=== PATIENT | female | born 1960 | race Caucasian/White ===

== ENCOUNTER 2018-07-28 11:19 | Inpatient (IN) | payer BC, OTHER ==
[2018-07-28] MEDS ORDERED: HYDROmorphone HCL 1 MG/ML DISP.SYRIN IV ONE (11:32)
--- NOTE | 2018-07-28 12:01 | ERNOTE ---
Upper Extremity HPI - Narrative Date of Service: 07/28/18 - General Extremities Pain Location: shoulder: bilateral Time Seen by Provider: 07/28/18 11:22 Source: patient Exam Limitations: no limitations - Immun/Allergies/Home Medications Immunizations: IMMUNIZATION HX Immunizations Up to Date Yes History of Influenza Vaccine Yes Hx Pneumococcal Vaccination Yes Allergies/Adverse Reactions: Allergies Allergy/AdvReac Type Severity Reaction Status Date / Time No Known Allergies Allergy Unverified 07/28/18 11:46 Home Medications: HOME MEDICATIONS Advair 250-50 Diskus 07/28/18 [Last Taken Unknown] Effexor 07/28/18 [Last Taken Unknown] Humulin R SC TID 07/28/18 [Last Taken Unknown] Januvia 07/28/18 [Last Taken Unknown] Metformin HCl 07/28/18 [Last Taken Unknown] Metformin HCl 07/28/18 [Last Taken Unknown] Omeprazole 07/28/18 [Last Taken Unknown] Spiriva 07/28/18 [Last Taken Unknown] Topamax 07/28/18 [Last Taken Unknown] Zetia 07/28/18 [Last Taken Unknown] - History of Present Illness Narrative: Patient is sent to the ED in transfer from outlying facility. She was at work pushing a cart and the cart gave way. She fell forward and sustained a fracture/dislocation of the right shoulder and fracture of the left shoulder as well. She did not have LOC. She did bite her tongue but no other injuries. No facial pain. no neck pain. Denies other injuries. Bilateral shoulder pain is severe. Worse with any kind of movement. No acute N/T/W. Sent here iin transfer for ortho services. She denies acute CP or SOB, no abdominal pain. Occurred: just prior to arrival Location of Incident: work Method of Injury: Reports: fell Reason for Fall: Reports: other - see HPI Loss of Consciousness: Reports: no loss of consciousness Modifying Factors - (Improves): Reports: rest Modifying Factors - (Worsens): Reports: movement Associated Symptoms: Denies: tingling, weakness, numbness distally Other Injuries: Reports: other - tongue Prior Treament: Reports: recently seen Review of Systems - Review of Systems Constitutional: Absent: fever EYE: Present: no symptoms reported ENT: Absent: sore throat Respiratory: Absent: shortness of breath Cardiology: Absent: chest pain Gastrointestinal/Abdominal: Absent: abdominal pain Genitourinary: Absent: dysuria Musculoskeletal: Present: See HPI Skin: Present: no symptoms reported Neurological: Absent: weakness, numbness, tingling All Other Systems: All systems neg except as marked Medical History (Last Reviewed 07/28/18 @ 11:58 by Todd Moreno MD) Asthma Diabetes mellitus type 2 in obese GERD (gastroesophageal reflux disease) HTN (hypertension) Migraines Obesity Sleep apnea Surgical History: Surgical History (Last Reviewed 07/28/18 @ 11:58 by Todd Moreno MD) Hx laparoscopic cholecystectomy Hx of heart artery stent Hx of heart bypass surgery Social History: Preferred Language Amharic Do you have any hindu or No cultural preference? Smoking Status Never smoker Alcohol Use sober Drug Use none No Social History Section defined Physical Exam - Physical Exam General Appearance: Present: alert, no apparent distress Head Exam: Present: normal inspection, no evidence of injury Eye Exam: Normal inspection: bilateral, PERRL: bilateral Ears, Nose, Throat: Present: other - very small tongue laceration tongue. No other suggesation of facial bone fracture Neck: Present: normal inspection. Absent: tender posterior midline Respiratory: Present: no respiratory distress, normal breath sounds, no accessory muscle use, lungs clear Cardiovascular/Chest: Present: regular rate, rhythm, normal peripheral pulses Gastrointestinal/Abdominal: Present: normal bowel sounds, nontender, soft Back Exam: Present: no vertebral tenderness Extremity Exam: Present: other - No LE tenderness. Bilateral shoulder tenderness Neurological Exam: Present: alert, other - pain limits exam but no clear acute focal motor or sensory deficits Skin Exam: Present: normal color, warm/dry ED Progress - Results and Orders Patient's Lab Results:: I have reviewed the patient's lab results. - Vital Signs Patient's Vital Signs:: I have reviewed the patient's vital signs. Vital Signs: Vital Signs 07/28/18 11:20 Temperature 36.7 C Pulse Rate 90 Respiratory Rate 14 Blood Pressure 142/83 H O2 Sat by Pulse Oximetry 95 - EKG EKG: NSR EKG read: Interp. by me EKG Comments: NSR rate 87. Non-specific ST/T wave changes, no STEMI - CT/Ultrasound CT/Ultrasound Narrative: I reviewed all x-rays from outlying facility. - Progress/Reassessment Chief Complaint: Shoulder Injury/Pain Progress Note-Subjective: 07/28/18 11:54 I discussed the case with Dr Adame and Dr Zazueta. Dr Zazueta will see the patient in the ED for re-op and admission. Dr Adame will also see the patient in the ED. Patient understands. Departure Clinical Impression: Fall, Fracture dislocation of right shoulder joint, Fracture of humeral head, left, closed - Departure Disposition: Still a patient Condition: Fair
[2018-07-28 12:19] LABS: Hematocrit 43.4 % (37.0-47.0); Hemoglobin 14.1 gm/dL (12.5-16.0); Mean Cell Volume 83.8 fl (78-100); Mean Corpuscular Hemoglobin 27.2 pg (27-31); Mean Corpuscular Hgb Conc 32.5 g/dl (32-36); Mean Platelet Volume 11.9 fl (8-12.5); Neutrophil # 14.3 K/mm3 (1.3-6.0); Neutrophil % 86.4 % (42-75.0); Platelet Count 207 K/mm3 (150-450); Red Blood Count 5.18 M/mm3 (4.2-5.4); Red Cell Distribution Width 13.3 % (11.5-14.0); White Blood Count 16.6 K/mm3 (4.0-10.5)
[2018-07-28 12:34] LABS: Albumin * 3.4 gm/dl (3.4-5.0); Anion Gap 14.3 mmol/L (6.8-13.8); BUN/Creatinine Ratio 20.5 (9.0-21.6); Bilirubin, Total 0.5 mg/dL (0.0-1.1); Ca. Corrected For Albumin 8.8 mg/dL (8.4-10.2); Calcium * 8.6 mg/dL (7.9-10.9); Carbon Dioxide 24.7 mmol/L (24-32.6); Total Protein 6.8 gm/dL (6.2-8.2)
[2018-07-28 13:03] LABS: Urine Bilirubin Negative (NEGATIVE); Urine Ketone 5 mg/dL (NEGATIVE); Urine Nitrite Negative (NEGATIVE); Urine Protein Negative (NEGATIVE); Urine Specific Gravity 1.015 SP.GR. (1.005-1.010); Urine Urobilinogen Normal (NORMAL)
[2018-07-28] MEDS: HYDROmorphone HCL 1 MG/ML DISP.SYRIN IV PRN ×3 (13:04→19:23)
[2018-07-28] MEDS ORDERED: TIOTROPIUM BROMIDE 5 CAP INHALER IH PRN (13:15)
[2018-07-28] MEDS ORDERED: ENOXAPARIN SODIUM 40 MG/0.4 ML SYRG SC SCH (13:15)
[2018-07-28 13:16] LABS: Urine Appearance Slightly Cloudy (CLEAR); Urine Bacteria 1+; Urine Blood 5 /ul (NEGATIVE); Urine Color Pale Yellow; Urine Hyaline Cast TRACE /LPF; Urine RBC None Seen /hpf (0-5); Urine WBC None Seen /hpf (0-5)
--- NOTE | 2018-07-28 13:33 | HP ---
Chief Complaint - Chief Complaint Date of Service: 07/28/18 Time of Service: 12:35 Chief Complaint: Bilateral shoulder fractures, on of the R. humerus and one of the L shoulder girdle due to a fall. Also has a tongue bite perforation. History of Present Illness: Fell pushing a cart with a load. the front wheels stopped at the elevator track and the load went forward. she then fell onto the cart and broke both of her shoulders. Medical History (Last Reviewed 07/28/18 @ 11:58 by Todd Moreno MD) Asthma Diabetes mellitus type 2 in obese GERD (gastroesophageal reflux disease) HTN (hypertension) Migraines Obesity Sleep apnea Surgical History: Surgical History (Last Reviewed 07/28/18 @ 11:58 by Todd Moreno MD) Hx laparoscopic cholecystectomy Hx of heart artery stent Hx of heart bypass surgery Family History: Family History (Last Updated 07/28/18 @ 11:56 by Steffen Perez RN) Grandmother Diabetes Sister No problems noted. Mother Cancer Sister Heart disease Social History: Preferred Language Monegasque Do you have any moravian or No cultural preference? Smoking Status Never smoker Alcohol Use sober Drug Use none No Social History Section defined Review Of Systems (GEN) - Review of Systems EENTM: Present: Other - Tongue bite perforation from the fall Respiratory: Present: No Symptoms Reported Cardiac: Present: No Symptoms Reported, Other - Has a hx of hypertension Abdominal: Present: No Symptoms Reported Genitourinary: Present: No Symptoms Reported Musculoskeletal: Present: Joint Pain - both shoulders due to traumatic fractures. Neurological: Present: No Symptoms Reported. Absent: Emotional Problems Skin: Present: No Symptoms Reported Endocrine: Present: Other - History of IDDM and is uncontrolled. BS in ER 496 Immunizations: IMMUNIZATION HX Immunizations Up to Date Yes History of Influenza Vaccine Yes Hx Pneumococcal Vaccination Yes Allergies/Adverse Reactions: Allergies Allergy/AdvReac Type Severity Reaction Status Date / Time No Known Allergies Allergy Unverified 07/28/18 11:46 Home Medications: HOME MEDICATIONS Advair 250-50 Diskus 1 puff IH DAILY 07/28/18 [Last Taken Unknown] Effexor 75 mg PO TID 07/28/18 [Last Taken Unknown] Humulin R 110 units SC TID 07/28/18 [Last Taken Unknown] Januvia 100 mg PO DAILY 07/28/18 [Last Taken Unknown] Metformin HCl 500 ng PO DAILY 07/28/18 [Last Taken Unknown] Omeprazole 20 mg PO DAILY 07/28/18 [Last Taken Unknown] Spiriva 2 puff IH PRN PRN 07/28/18 [Last Taken Unknown] Topamax 50 mg PO BID 07/28/18 [Last Taken Unknown] Zetia 07/28/18 [Last Taken Unknown] Exam - Exam Vital Signs: Vital Signs - Last Taken Temp 36.7 C 07/28/18 11:20 Pulse 99 07/28/18 13:00 Resp 10 L 07/28/18 13:00 BP 152/77 H 07/28/18 13:00 Pulse Ox 93 07/28/18 13:00 Constitutional: Present: Alert, Oriented x3, Cooperative, Well developed, Well nourished, Moderate distress, Obese, Looks Older than stated age ENT Exam: Present: normal ENT inspection, hearing grossly normal, pharynx normal, TMs normal, other - Tongue bite perforation Eye Exam: bilateral eye: normal inspection, PERRL, EOMI Neck: Present: non-tender, full range of motion, supple Back Exam: Present: normal inspection, no CVA tenderness, no vertebral tenderness Respiratory: Present: chest non-tender, lungs clear, normal breath sounds, no respiratory distress, no accessory muscle use Cardiovascular/Chest: Present: normal peripheral pulses, regular rate, rhythm, no chest tenderness, no edema, no gallop, no JVD, no murmur, no rub Peripheral Pulses: carotid (R): 2+, carotid (L): 2+ Abdomen: Present: Normal bowel sounds, soft, nontender, nondistended, no rebound tenderness, no hepatospenomegaly, no masses /Rectal: Present: Exam deferred Extremity: Present: other - Unable to move arms and shoulders Lymphatic: Present: no adenopathy Neurologic: Present: athlete marketing agent II-XII nml as tested, no motor/sensory deficits, alert, normal mood/affect, oriented x 3, abnormal athlete marketing agent II-XII Appearance: Present: appropriate appearance, appropriate insight, neat, no memory impairment Eye contact: Present: cooperative, good eye contact, normal speech, avoids eye contact, refused to answer Thoughts: Present: normal thought pattern, no apparent hallucination Diagnostic Studies: Abnormal Lab Results 11/07/18 11/07/18 11/07/18 Range/Units 12:10 12:10 12:29 WBC 16.6 H (4.0-10.5) K/mm3 Immature Gran % (Auto) 1.00 H (0.001-0.429) % Immature Gran # (Auto) 0.17 H (0.000-0.0310) K/mm3 Neutrophils % 86.4 H (42-75.0) % Lymphocytes % 7.3 L (20-51) % Neutrophils # 14.3 H (1.3-6.0) K/mm3 Lymphocytes # 1.21 L (1.5-3.5) k/mm3 Anion Gap 14.3 H (6.8-13.8) mmol/L Random Glucose 460 H (70-110) mg/dL AST 52 H (0-48) U/L Alkaline Phosphatase 183 H (50-170) U/L Urine Glucose (UA) >=1000 H (NEGATIVE) mg/dL Urine Blood 5 H (NEGATIVE) /ul Urine Bacteria 1+ H (NONE) Laboratory Results WBC 16.6 K/mm3 (4.0-10.5) H 07/28/18 12:10 RBC 5.18 M/mm3 (4.2-5.4) 07/28/18 12:10 Hgb 14.1 gm/dL (12.5-16.0) 07/28/18 12:10 Hct 43.4 % (37.0-47.0) 07/28/18 12:10 MCV 83.8 fl (78-100) 07/28/18 12:10 MCH 27.2 pg (27-31) 07/28/18 12:10 MCHC 32.5 g/dl (32-36) 07/28/18 12:10 RDW 13.3 % (11.5-14.0) 07/28/18 12:10 Plt Count 207 K/mm3 (150-450) 07/28/18 12:10 MPV 11.9 fl (8-12.5) 07/28/18 12:10 Immature Gran % (Auto) 1.00 % (0.001-0.429) H 07/28/18 12:10 Immature Gran # (Auto) 0.17 K/mm3 (0.000-0.0310) H 07/28/18 12:10 Neutrophils % 86.4 % (42-75.0) H 07/28/18 12:10 Lymphocytes % 7.3 % (20-51) L 07/28/18 12:10 Monocytes % 4.6 % (0.0-9) 07/28/18 12:10 Eosinophils % 0.2 % (0.0-3.0) 07/28/18 12:10 Basophils % 0.5 % (0.0-1.0) 07/28/18 12:10 Nucleated RBC % 0.0 k/mm3 (0-1) 07/28/18 12:10 Neutrophils # 14.3 K/mm3 (1.3-6.0) H 07/28/18 12:10 Lymphocytes # 1.21 k/mm3 (1.5-3.5) L 07/28/18 12:10 Monocytes # 0.8 k/mm3 (0.0-1.0) 07/28/18 12:10 Eosinophils # 0.0 k/mm3 (0.0-0.7) 07/28/18 12:10 Absolute Basophils 0.1 k/mm3 (0.0-0.1) 07/28/18 12:10 Sodium 136 mmol/L (132-142) 07/28/18 12:10 Plasma Sodium 142 mmol/L (130-142) 07/28/18 12:10 Potassium 4.0 mmol/L (3.4-4.6) 07/28/18 12:10 Chloride 101 mmol/L (97-106) 07/28/18 12:10 Carbon Dioxide 24.7 mmol/L (24-32.6) 07/28/18 12:10 Anion Gap 14.3 mmol/L (6.8-13.8) H 07/28/18 12:10 BUN 17 mg/dL (3-23) 07/28/18 12:10 Creatinine 0.83 mg/dL (0.4-1.4) 07/28/18 12:10 Est GFR (Non-Af Amer) 75 mL/min (60-130) 07/28/18 12:10 BUN/Creatinine Ratio 20.5 (9.0-21.6) 07/28/18 12:10 Random Glucose 460 mg/dL (70-110) H 07/28/18 12:10 Calcium 8.6 mg/dL (7.9-10.9) 07/28/18 12:10 Calcium Adj for Albumin 8.8 mg/dL (8.4-10.2) 07/28/18 12:10 Total Bilirubin 0.5 mg/dL (0.0-1.1) 07/28/18 12:10 AST 52 U/L (0-48) H 07/28/18 12:10 ALT 49 U/L (19-67) 07/28/18 12:10 Alkaline Phosphatase 183 U/L (50-170) H 07/28/18 12:10 Total Protein 6.8 gm/dL (6.2-8.2) 07/28/18 12:10 Albumin 3.4 gm/dl (3.4-5.0) 07/28/18 12:10 Urine Color Pale yellow 07/28/18 12:29 Urine Appearance Slightly cloudy (CLEAR) 07/28/18 12:29 Urine pH 6.0 pH (5.0-7.0) 07/28/18 12:29 Ur Specific [place] 1.015 SP.GR. (1.005-1.010) 07/28/18 12:29 Urine Protein Negative mg/dL (NEGATIVE) 07/28/18 12:29 Urine Glucose (UA) >=1000 mg/dL (NEGATIVE) H 07/28/18 12:29 Urine Ketones 5 mg/dL (NEGATIVE) 07/28/18 12:29 Urine Blood 5 /ul (NEGATIVE) H 07/28/18 12:29 Urine Nitrate Negative (NEGATIVE) 07/28/18 12:29 Urine Bilirubin Negative mg/dl (NEGATIVE) 07/28/18 12:29 Urine Urobilinogen Normal EU/dl (NORMAL) 07/28/18 12:29 Ur Leukocyte Esterase Negative /ul (NEGATIVE) 07/28/18 12:29 Urine RBC None seen /hpf (0-5) 07/28/18 12:29 Urine WBC None seen /hpf (0-5) 07/28/18 12:29 Ur Epithelial Cells 0-5 /hpf (0-5) 07/28/18 12:29 Urine Bacteria 1+ (NONE) H 07/28/18 12:29 Hyaline Casts Trace /LPF (NONE) 07/28/18 12:29 Urine Culture Comments No culture indicated 07/28/18 12:29 Assessment/Plan - Narrative Narrative: 1. Dr. Adame will manage surgically 2. I will manage medically 3. Readdress her diabetes management. - Assessment/Plan (1) Fracture dislocation of right shoulder joint Problem: Acute Qualifiers: Encounter type: initial encounter (2) Fracture of humeral head, left, closed Problem: Acute Qualifiers: Encounter type: initial encounter Qualified Code(s): S42.292A - Other displaced fracture of upper end of left humerus, initial encounter for closed fracture (3) Type II diabetes mellitus Problem: Chronic Qualifiers: Diabetes mellitus intermodal customer service insulin use: with [facility] use Diabetes mellitus complication status: without complication Qualified Code(s): E11.9 - Type 2 diabetes mellitus without complications; Z79.4 - [facility] (current) use of insulin (4) Hypertension Problem: Chronic Qualifiers: Hypertension type: essential hypertension Qualified Code(s): I10 - Essenti al (primary) hypertension (5) Fall Problem: Acute (6) Tongue biting Problem: Acute
[2018-07-28] MEDS ORDERED: INSULIN LISPRO 100 UNITS/ML VIAL SC STA (13:34)
--- NOTE | 2018-07-28 13:46 | CONS ---
- Reason for consultation (1) Proximal humerus fracture Date of Service: 07/28/18 (2) Fracture dislocation of right shoulder joint Date of Service: 07/28/18 HPI - General Date of Service: 07/28/18 Narrative: Mrs. Torrez is a 58-year-old female who was at work pushing a cart onto an elevator when the the cart abruptly stopped and she fell resulting in an injury to bilateral shoulders. She was seen outside emergency department and had x- rays obtained which showed a right proximal humerus fracture dislocation and a comminuted left proximal humerus fracture. She denies any other areas of pain or injury. She is in our emergency department for further evaluation and is in mild discomfort. Source: patient - History of Present Illness Timing/Duration: 4-6 hours Severity: moderate Modifying Factors - (Worsens): Reports: movement Modifying Factors - (Improves): Reports: immobilization Associated Symptoms: denies symptoms Allergies/Adverse Reactions: Allergies No Known Allergies Allergy (Unverified 07/28/18 11:46) Home Medications: Home Medications Medication Instructions Recorded Last Taken Advair 250-50 Diskus 1 puff IH DAILY 07/28/18 Unknown Effexor 75 mg PO TID 07/28/18 Unknown Humulin R 110 units SC TID 07/28/18 Unknown Januvia 100 mg PO DAILY 07/28/18 Unknown Metformin HCl 500 ng PO DAILY 07/28/18 Unknown Omeprazole 20 mg PO DAILY 07/28/18 Unknown Spiriva 2 puff IH PRN PRN 07/28/18 Unknown Topamax 50 mg PO BID 07/28/18 Unknown Zetia 07/28/18 Unknown Procedures Other partial ostectomy, scapula, clavicle, and thorax [ribs and sternum] (03/06/03) Other repair of shoulder (03/06/03) Medications - Medications Current Medications: Current Medications Hydromorphone HCl (Dilaudid) 1 mg IV Q2H PRN PRN Reason: Pain Stop: 08/27/18 12:51 Last Admin: 07/28/18 13:04 Dose: 1 mg Review of Systems - Review of Systems Generalized/Overall Review: Present: No Symptoms Reported Physical Examination - Exam Narrative: Right upper extremity: Well-healed arthroscopy portals, squared off shoulder consistent with dislocation anteriorly, palpable radial pulse, sensation is intact light touch, she is able to move and flex and extend her hand and wrist. Sensations intact to the radial nerve as well as the remaining arm. She has pain with any shoulder range of motion. Left upper extremity: No lacerations, abrasions, or ecchymosis at this point. Sensation is intact light touch throughout the arm. Palpable radial pulse. She is able to flex and extend and move her wrist and hand without significant pain. She has tenderness about her shoulder. Vital Signs: Vital Signs - Last Taken Temp 36.7 C 07/28/18 11:20 Pulse 99 07/28/18 13:00 Resp 10 L 07/28/18 13:00 BP 152/77 H 07/28/18 13:00 Pulse Ox 88 L 07/28/18 13:00 O2 Oxygen Delivery Method Room Air Constitutional: Present: Alert, Oriented x3 - Results and Findings: Narrative: Bilateral shoulder x-rays reviewed from outside hospital: Three-part right proximal humerus fracture dislocation, 3 parts valgus impacted left proximal humerus fracture Lab/Microbiology results last 24 hrs: Abnormal/Pending Laboratory Last 24 HRS 07/28/18 07/28/18 07/28/18 12:29 12:10 12:10 WBC 16.6 H Immature Gran % (Auto) 1.00 H Immature Gran # (Auto) 0.17 H Neutrophils % 86.4 H Lymphocytes % 7.3 L Neutrophils # 14.3 H Lymphocytes # 1.21 L Anion Gap 14.3 H Random Glucose 460 H AST 52 H Alkaline Phosphatase 183 H Urine Glucose (UA) >=1000 H Urine Blood 5 H Urine Bacteria 1+ H - Assessments/Findings (1) Proximal humerus fracture Diagnosis(s): The plan will be to admit to medicine for preoperative optimization. We will do staged bilateral proximal humerus fracture open reduction internal fixation. The left would be performed today following the right. Problem: Acute Qualifiers: Encounter type: initial encounter Fracture type: closed Fracture morphology: other fracture Fracture alignment: displaced Laterality: left Qualified Code(s): S42.292A - Other displaced fracture of upper end of left humerus, initial encounter for closed fracture (2) Fracture dislocation of right shoulder joint Diagnosis(s): The plan is for closed reduction in the emergency department. We will then plan to proceed with open reduction internal fixation following day. The risks of surgery were reviewed. She'll be admitted to the floor afterwards. Problem: Acute Qualifiers: Encounter type: initial encounter Fracture type: closed Qualified Code(s): S42.91XA - Fracture of right shoulder girdle, part unspecified, initial encounter for closed fracture
[2018-07-28 13:53] LABS: Hemoglobin A1C 11.5 % (4.00-6.0)
--- NOTE | 2018-07-28 16:14 | ANES ---
Anesthesia Pre Procedure Eval Vitals/Labs: Last Vital Signs Temp 36.6 C 07/28/18 14:15 Pulse 114 H 07/28/18 15:51 Resp 14 07/28/18 15:51 BP 178/84 H 07/28/18 15:51 Pulse Ox 95 07/28/18 15:51 Hemoglobin A1c 11.5 % (4.00-6.0) H 07/28/18 12:10 Laboratory Last Values WBC 16.6 K/mm3 (4.0-10.5) H 07/28/18 12:10 RBC 5.18 M/mm3 (4.2-5.4) 07/28/18 12:10 Hgb 14.1 gm/dL (12.5-16.0) 07/28/18 12:10 Hct 43.4 % (37.0-47.0) 07/28/18 12:10 MCV 83.8 fl (78-100) 07/28/18 12:10 MCH 27.2 pg (27-31) 07/28/18 12:10 MCHC 32.5 g/dl (32-36) 07/28/18 12:10 RDW 13.3 % (11.5-14.0) 07/28/18 12:10 Plt Count 207 K/mm3 (150-450) 07/28/18 12:10 MPV 11.9 fl (8-12.5) 07/28/18 12:10 Immature Gran % (Auto) 1.00 % (0.001-0.429) H 07/28/18 12:10 Immature Gran # (Auto) 0.17 K/mm3 (0.000-0.0310) H 07/28/18 12:10 Neutrophils % 86.4 % (42-75.0) H 07/28/18 12:10 Lymphocytes % 7.3 % (20-51) L 07/28/18 12:10 Monocytes % 4.6 % (0.0-9) 07/28/18 12:10 Eosinophils % 0.2 % (0.0-3.0) 07/28/18 12:10 Basophils % 0.5 % (0.0-1.0) 07/28/18 12:10 Nucleated RBC % 0.0 k/mm3 (0-1) 07/28/18 12:10 Neutrophils # 14.3 K/mm3 (1.3-6.0) H 07/28/18 12:10 Lymphocytes # 1.21 k/mm3 (1.5-3.5) L 07/28/18 12:10 Monocytes # 0.8 k/mm3 (0.0-1.0) 07/28/18 12:10 Eosinophils # 0.0 k/mm3 (0.0-0.7) 07/28/18 12:10 Absolute Basophils 0.1 k/mm3 (0.0-0.1) 07/28/18 12:10 Sodium 136 mmol/L (132-142) 07/28/18 12:10 Plasma Sodium 142 mmol/L (130-142) 07/28/18 12:10 Potassium 4.0 mmol/L (3.4-4.6) 07/28/18 12:10 Chloride 101 mmol/L (97-106) 07/28/18 12:10 Carbon Dioxide 24.7 mmol/L (24-32.6) 07/28/18 12:10 Anion Gap 14.3 mmol/L (6.8-13.8) H 07/28/18 12:10 BUN 17 mg/dL (3-23) 07/28/18 12:10 Creatinine 0.83 mg/dL (0.4-1.4) 07/28/18 12:10 Est GFR (Non-Af Amer) 75 mL/min (60-130) 07/28/18 12:10 BUN/Creatinine Ratio 20.5 (9.0-21.6) 07/28/18 12:10 Random Glucose 460 mg/dL (70-110) H 07/28/18 12:10 Mean Blood Glucose 297 mg/dL 07/28/18 12:10 Hemoglobin A1c 11.5 % (4.00-6.0) H 07/28/18 12:10 Calcium 8.6 mg/dL (7.9-10.9) 07/28/18 12:10 Calcium Adj for Albumin 8.8 mg/dL (8.4-10.2) 07/28/18 12:10 Total Bilirubin 0.5 mg/dL (0.0-1.1) 07/28/18 12:10 AST 52 U/L (0-48) H 07/28/18 12:10 ALT 49 U/L (19-67) 07/28/18 12:10 Alkaline Phosphatase 183 U/L (50-170) H 07/28/18 12:10 Total Protein 6.8 gm/dL (6.2-8.2) 07/28/18 12:10 Albumin 3.4 gm/dl (3.4-5.0) 07/28/18 12:10 Urine Color Pale yellow 07/28/18 12:29 Urine Appearance Slightly cloudy (CLEAR) 07/28/18 12:29 Urine pH 6.0 pH (5.0-7.0) 07/28/18 12:29 Ur Specific [place] 1.015 SP.GR. (1.005-1.010) 07/28/18 12:29 Urine Protein Negative mg/dL (NEGATIVE) 07/28/18 12:29 Urine Glucose (UA) >=1000 mg/dL (NEGATIVE) H 07/28/18 12:29 Urine Ketones 5 mg/dL (NEGATIVE) 07/28/18 12:29 Urine Blood 5 /ul (NEGATIVE) H 07/28/18 12:29 Urine Nitrate Negative (NEGATIVE) 07/28/18 12:29 Urine Bilirubin Negative mg/dl (NEGATIVE) 07/28/18 12:29 Urine Urobilinogen Normal EU/dl (NORMAL) 07/28/18 12:29 Ur Leukocyte Esterase Negative /ul (NEGATIVE) 07/28/18 12:29 Urine RBC None seen /hpf (0-5) 07/28/18 12:29 Urine WBC None seen /hpf (0-5) 07/28/18 12:29 Ur Epithelial Cells 0-5 /hpf (0-5) 07/28/18 12:29 Urine Bacteria 1+ (NONE) H 07/28/18 12:29 Hyaline Casts Trace /LPF (NONE) 07/28/18 12:29 Urine Culture Comments No culture indicated 07/28/18 12:29 HOME MEDICATIONS Albuterol Sulfate [Ventolin Hfa] 1 puff IH QID 07/28/18 [Last Taken Unknown] Aspirin 325 mg PO DAILY 07/28/18 [Last Taken Unknown] Atorvastatin Calcium [Lipitor] 80 mg PO DAILY 07/28/18 [Last Taken Unknown] Azithromycin [Zithromax] 250 mg PO DAILY 07/28/18 [Last Taken Unknown] Ezetimibe [Zetia] 10 mg PO DAILY 07/28/18 [Last Taken Unknown] Fluticasone Propionate [Flonase] 1 spray NS DAILY 07/28/18 [Last Taken Unknown] Fluticasone/Salmeterol [Advair 250-50 Diskus] 1 puff IH BID 07/28/18 [Last Taken Unknown] Gabapentin [Neurontin] 300 mg PO QID 07/28/18 [Last Taken Unknown] Hydrochlorothiazide 12.5 mg PO DAILY 07/28/18 [Last Taken Unknown] Insulin Lispro [Humalog] 55 unit SQ TID 07/28/18 [Last Taken Unknown] Insulin Regular, Human [Humulin R U-500 Kwikpen] 110 unit SQ TID 07/28/18 [Last Taken Unknown] Methocarbamol [Robaxin] 1 - 2 tab PO BID PRN 07/28/18 [Last Taken Unknown] Metoprolol Tartrate [Lopressor] 25 mg PO BID 07/28/18 [Last Taken Unknown] Montelukast Sodium [Singulair] 10 mg PO HS 07/28/18 [Last Taken Unknown] Omeprazole 40 mg PO DAILY 07/28/18 [Last Taken Unknown] Tiotropium [place] [Spiriva] 18 mcg IH DAILY 07/28/18 [Last Taken Unknown] Topiramate [Topamax] 50 mg PO BID 07/28/18 [Last Taken Unknown] Venlafaxine HCl [Effexor] 75 mg PO TID 07/28/18 [Last Taken Unknown] metFORMIN HCL [Glucophage Xr] 500 mg PO QAM 07/28/18 [Last Taken Unknown] sitaGLIPtin PHOSPHATE [Januvia] 100 mg PO DAILY 07/28/18 [Last Taken Unknown] Allergies/Adverse Reactions: Allergies Allergy/AdvReac Type Severity Reaction Status Date / Time No Known Allergies Allergy Unverified 07/28/18 11:46 - Planned Procedure Planned Procedure: closed reduction right shoulder Medication List Reviewed:: Yes Allergies Verified: Yes Medical History (Last Updated 07/28/18 @ 16:13 by Connor Leo CRNA) Coronary artery disease Asthma Diabetes mellitus type 2 in obese GERD (gastroesophageal reflux disease) HTN (hypertension) Migraines Obesity Sleep apnea Surgical History (Last Reviewed 07/28/18 @ 16:13 by Connor Leo CRNA) Hx laparoscopic cholecystectomy Hx of heart artery stent Hx of heart bypass surgery Family History (Last Updated 07/28/18 @ 11:56 by Steffen Perez RN) Grandmother Diabetes Sister No problems noted. Mother Cancer Sister Heart disease - Family Anesthesia History Family History:: no untoward family reactions to anesthesia, no familial bleeding tendencies, no family history of clotting disorders, no family history of premature - Airway/Neck/Teeth Within Normal Limits:: Yes Teeth Condition: Intact Mallampatti Score: 2 Thyromental (T-M) distance: > 6 cm Mandibulo Hyoid distance: > 3 cm - Respiratory Respiratory: lungs clear Discussed smoking cessation including day of surgery: No Sleep Apnea currently treated: Yes Sleep Apnea by current assessment: No Discussed Risks/Treatment of JN: No - Cardiovascular Tolerates Activity: Poor Heart Sounds: S1 & S2, Regular - Anesthesia Assessment and Plan ASA Class: PS, IV Anesthesia Type Plan: MAC
--- NOTE | 2018-07-28 17:08 | OR ---
Operative Report - Dictated Report Narrative: Date: 07/28/2018 Surgeon: Aureliano Adame M.D. [employer] Supervisor: None Anesthesia: MAC Preoperative diagnosis: Right proximal humerus fracture dislocation closed. Postoperative diagnosis: Right closed proximal humerus fracture dislocation. Procedure: 1. Closed reduction right proximal humerus fracture dislocation Estimated blood loss: None Specimens: None Complications: None Indications: Mrs. Torrez is a 58-year-old female who fell at work resulting in a injury to the right shoulder. They were seen in the emergency department with images obtained revealing the above injury. Treatment options were discussed with the patient and family and the plan for closed reduction with staged fixation was discussed. Risks were reviewed as well as follow-up. Procedure: After a timeout, MAC anesthetic was induced. Once adequate anesthesia was in place a reduction maneuver was performed by gentle longitudinal traction and manual pressure over the anterior shoulder. This was confirmed by postreduction x-ray. A well-padded sling was applied. Final images will be obtained. She will be admitted postoperatively for surgical intervention in the next 24 hours. The extremity was neurovascularly intact postreduction.
--- NOTE | 2018-07-28 17:14 | ANES ---
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
--- NOTE | 2018-07-28 17:15 | ANES ---
Post Anesthesia Assessment - Vital Signs Vitals: Last Vital Signs Temp 36.6 C 07/28/18 16:19 Pulse 110 H 07/28/18 17:14 Resp 10 L 07/28/18 17:14 BP 139/76 07/28/18 17:14 Pulse Ox 93 07/28/18 17:14 Airway Patency: Normal - Mental Status Level Of Consciousness: Drowsy - Pain Level Pain Score: 3 - N/V Assessment Nausea/Vomiting Presence: None Dehydration:: No
[2018-07-28] MEDS: VENLAFAXINE HCL 75 MG TABLET PO SCH (19:10)
[2018-07-28] MEDS: INSULIN REGULAR, HUMAN 100 UNITS/ML VIAL SC SCH (19:12)
[2018-07-28] MEDS: TOPIRAMATE 50 MG TABLET PO SCH (21:21)
[2018-07-29] MEDS: HYDROmorphone HCL 1 MG/ML DISP.SYRIN IV PRN ×5 (02:36→21:06)
[2018-07-29 05:44] LABS: Hematocrit 41.6 % (37.0-47.0); Hemoglobin 13.1 gm/dL (12.5-16.0); Mean Cell Volume 85.6 fl (78-100); Mean Corpuscular Hgb Conc 31.5 g/dl (32-36); Mean Platelet Volume 12.4 fl (8-12.5); Neutrophil # 8.7 K/mm3 (1.3-6.0); Neutrophil % 66.1 % (42-75.0); Platelet Count 243 K/mm3 (150-450); Red Blood Count 4.86 M/mm3 (4.2-5.4); Red Cell Distribution Width 13.4 % (11.5-14.0); White Blood Count 13.1 K/mm3 (4.0-10.5)
[2018-07-29 05:55] LABS: Albumin * 3.2 gm/dl (3.4-5.0); BUN/Creatinine Ratio 22.8 (9.0-21.6); Bilirubin, Total 0.5 mg/dL (0.0-1.1); Ca. Corrected For Albumin 9.3 mg/dL (8.4-10.2); Carbon Dioxide 28.5 mmol/L (24-32.6); Potassium 3.5 mmol/L (3.4-4.6); Total Protein 6.7 gm/dL (6.2-8.2)
[2018-07-29] MEDS: PANTOPRAZOLE SODIUM 20 MG TABLET.DR PO SCH (06:34)
--- NOTE | 2018-07-29 08:13 | PREOP NOTE ---
Preoperative Progress Note - Preoperative Changes Changes to Preop Condition?: No Changes
[2018-07-29] MEDS: INSULIN REGULAR, HUMAN 100 UNITS/ML VIAL SC SCH ×3 (08:34→18:51)
[2018-07-29] MEDS ORDERED: ALBUTEROL SULFATE 2.5 MG/0.5 ML VIAL.NEB IH PRN (08:37)
[2018-07-29] MEDS ORDERED: TIOTROPIUM BROMIDE 5 CAP INHALER IH SCH (09:00)
[2018-07-29] MEDS ORDERED: VENLAFAXINE HCL 75 MG TABLET PO SCH (09:00)
[2018-07-29] MEDS ORDERED: TIOTROPIUM BROMIDE 5 CAP INHALER IH PRN (09:00)
[2018-07-29] MEDS ORDERED: TOPIRAMATE 50 MG TABLET PO SCH (09:00)
[2018-07-29] MEDS ORDERED: INSULIN REGULAR HUMAN 110 UNIT SQ SCH (09:00)
[2018-07-29] MEDS ORDERED: OMEPRAZOLE 40 MG PO SCH (09:00)
--- NOTE | 2018-07-29 10:46 | PN ---
Subjective - Date and Time Seen Date: 07/29/18 Time: 08:30 Subjective Narrative: Lori has had an uneventful night. She has been prepared for surgery this afternoon and I have medically cleared her for the same. Her pain has been adequately controlled. Her vital signs are stable and she's had no complications to this point. Her upper extremity distal pulses and sensory and motor function are intact. Objective - Review of Systems Generalized/Overall Review: Reports: Malaise - Pain in both shoulders EENTM: Reports: No Symptoms Reported Respiratory: Reports: No Symptoms Reported Cardiac: Reports: No Symptoms Reported Abdominal: Reports: No Symptoms Reported Genitourinary Symptoms: Reports: No Symptoms Reported Musculoskeletal Complaints: Reports: Joint Pain - Both shoulders. Neurological: Reports: No Symptoms Reported Skin: Reports: No Symptoms Reported - Vitals Vitals: Last Vital Signs Temp 36.8 C 07/29/18 07:06 Pulse 100 07/29/18 07:06 Resp 16 07/29/18 07:06 BP 156/91 H 07/29/18 07:06 Pulse Ox 99 07/29/18 07:06 - Abnormal Lab Findings Abnormal Lab Findings: Abnormal Lab Results 07/28/18 07/28/18 07/28/18 Range/Units 12:10 12:10 12:10 WBC 16.6 H (4.0-10.5) K/mm3 MCHC (32-36) g/dl Immature Gran % (Auto) 1.00 H (0.001-0.429) % Immature Gran # (Auto) 0.17 H (0.000-0.0310) K/mm3 Neutrophils % 86.4 H (42-75.0) % Lymphocytes % 7.3 L (20-51) % Neutrophils # 14.3 H (1.3-6.0) K/mm3 Lymphocytes # 1.21 L (1.5-3.5) k/mm3 Monocytes # (0.0-1.0) k/mm3 Anion Gap 14.3 H (6.8-13.8) mmol/L BUN/Creatinine Ratio (9.0-21.6) Random Glucose 460 H (70-110) mg/dL Hemoglobin A1c 11.5 H (4.00-6.0) % AST 52 H (0-48) U/L Alkaline Phosphatase 183 H (50-170) U/L Albumin (3.4-5.0) gm/dl Urine Glucose (UA) (NEGATIVE) mg/dL Urine Blood (NEGATIVE) /ul Urine Bacteria (NONE) 07/28/18 07/29/18 07/29/18 Range/Units 12:29 05:37 05:37 WBC 13.1 H D (4.0-10.5) K/mm3 MCHC 31.5 L (32-36) g/dl Immature Gran % (Auto) 1.70 H (0.001-0.429) % Immature Gran # (Auto) 0.22 H (0.000-0.0310) K/mm3 Neutrophils % (42-75.0) % Lymphocytes % (20-51) % Neutrophils # 8.7 H (1.3-6.0) K/mm3 Lymphocytes # (1.5-3.5) k/mm3 Monocytes # 1.1 H (0.0-1.0) k/mm3 Anion Gap (6.8-13.8) mmol/L BUN/Creatinine Ratio 22.8 H (9.0-21.6) Random Glucose 149 H D (70-110) mg/dL Hemoglobin A1c (4.00-6.0) % AST (0-48) U/L Alkaline Phosphatase 174 H (50-170) U/L Albumin 3.2 L (3.4-5.0) gm/dl Urine Glucose (UA) >=1000 H (NEGATIVE) mg/dL Urine Blood 5 H (NEGATIVE) /ul Urine Bacteria 1+ H (NONE) - EKG/Xray Findings EKG: NSR Assessment/Plan - Problems/Diagnosis (1) Fracture dislocation of right shoulder joint Problem: Acute Qualifiers: Encounter type: initial encounter Fracture type: closed Qualified Code(s): S42.91XA - Fracture of right shoulder girdle, part unspecified, initial encounter for closed fracture (2) Fracture of humeral head, left, closed Problem: Acute Qualifiers: Encounter type: initial encounter Qualified Code(s): S42.292A - Other displaced fracture of upper end of left humerus, initial encounter for closed fracture (3) Type II diabetes mellitus Problem: Chronic Qualifiers: Diabetes mellitus group home insulin use: with group home use Diabetes mellitus complication status: without complication Qualified Code(s): E11.9 - Type 2 diabetes mellitus without complications; 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
[2018-07-29] MEDS: INSULIN LISPRO 100 UNITS/ML VIAL SC SCH ×3 (11:23→18:51)
[2018-07-29] MEDS: METOPROLOL TARTRATE 25 MG TABLET PO SCH ×2 (11:25→21:19)
[2018-07-29] MEDS: HYDROCHLOROTHIAZIDE 12.5 MG CAPSULE PO SCH (11:25)
[2018-07-29] MEDS: RINGER'S SOLUTION,LACTATED 1,000 ML IV PRN ×4 (11:57→22:40)
--- NOTE | 2018-07-29 12:13 | ANES ---
Anesthesia Pre Procedure Eval Vitals/Labs: Last Vital Signs Temp 36.6 C 07/29/18 10:46 Pulse 105 H 07/29/18 11:25 Resp 16 07/29/18 10:46 BP 173/95 H 07/29/18 11:25 Pulse Ox 100 07/29/18 10:46 Hemoglobin A1c 11.5 % (4.00-6.0) H 07/28/18 12:10 Laboratory Last Values WBC 13.1 K/mm3 (4.0-10.5) H D 07/29/18 05:37 RBC 4.86 M/mm3 (4.2-5.4) 07/29/18 05:37 Hgb 13.1 gm/dL (12.5-16.0) 07/29/18 05:37 Hct 41.6 % (37.0-47.0) 07/29/18 05:37 MCV 85.6 fl (78-100) 07/29/18 05:37 MCH 27.0 pg (27-31) 07/29/18 05:37 MCHC 31.5 g/dl (32-36) L 07/29/18 05:37 RDW 13.4 % (11.5-14.0) 07/29/18 05:37 Plt Count 243 K/mm3 (150-450) 07/29/18 05:37 MPV 12.4 fl (8-12.5) 07/29/18 05:37 Immature Gran % (Auto) 1.70 % (0.001-0.429) H 07/29/18 05:37 Immature Gran # (Auto) 0.22 K/mm3 (0.000-0.0310) H 07/29/18 05:37 Neutrophils % 66.1 % (42-75.0) 07/29/18 05:37 Lymphocytes % 20.9 % (20-51) 07/29/18 05:37 Monocytes % 8.7 % (0.0-9) 07/29/18 05:37 Eosinophils % 1.8 % (0.0-3.0) 07/29/18 05:37 Basophils % 0.8 % (0.0-1.0) 07/29/18 05:37 Nucleated RBC % 0.0 k/mm3 (0-1) 07/29/18 05:37 Neutrophils # 8.7 K/mm3 (1.3-6.0) H 07/29/18 05:37 Lymphocytes # 2.73 k/mm3 (1.5-3.5) 07/29/18 05:37 Monocytes # 1.1 k/mm3 (0.0-1.0) H 07/29/18 05:37 Eosinophils # 0.2 k/mm3 (0.0-0.7) 07/29/18 05:37 Absolute Basophils 0.1 k/mm3 (0.0-0.1) 07/29/18 05:37 Sodium 140 mmol/L (132-142) 07/29/18 05:37 Plasma Sodium 141 mmol/L (130-142) 07/29/18 05:37 Potassium 3.5 mmol/L (3.4-4.6) 07/29/18 05:37 Chloride 104 mmol/L (97-106) 07/29/18 05:37 Carbon Dioxide 28.5 mmol/L (24-32.6) 07/29/18 05:37 Anion Gap 11.0 mmol/L (6.8-13.8) 07/29/18 05:37 BUN 18 mg/dL (3-23) 07/29/18 05:37 Creatinine 0.79 mg/dL (0.4-1.4) 07/29/18 05:37 Est GFR (Non-Af Amer) 79 mL/min (60-130) 07/29/18 05:37 BUN/Creatinine Ratio 22.8 (9.0-21.6) H 07/29/18 05:37 Random Glucose 149 mg/dL (70-110) H D 07/29/18 05:37 Mean Blood Glucose 297 mg/dL 07/28/18 12:10 Hemoglobin A1c 11.5 % (4.00-6.0) H 07/28/18 12:10 Calcium 9.0 mg/dL (7.9-10.9) 07/29/18 05:37 Calcium Adj for Albumin 9.3 mg/dL (8.4-10.2) 07/29/18 05:37 Total Bilirubin 0.5 mg/dL (0.0-1.1) 07/29/18 05:37 AST 35 U/L (0-48) 07/29/18 05:37 ALT 49 U/L (19-67) 07/29/18 05:37 Alkaline Phosphatase 174 U/L (50-170) H 07/29/18 05:37 Total Protein 6.7 gm/dL (6.2-8.2) 07/29/18 05:37 Albumin 3.2 gm/dl (3.4-5.0) L 07/29/18 05:37 Urine Color Pale yellow 07/28/18 12:29 Urine Appearance Slightly cloudy (CLEAR) 07/28/18 12:29 Urine pH 6.0 pH (5.0-7.0) 07/28/18 12:29 Ur Specific [place] 1.015 SP.GR. (1.005-1.010) 07/28/18 12:29 Urine Protein Negative mg/dL (NEGATIVE) 07/28/18 12:29 Urine Glucose (UA) >=1000 mg/dL (NEGATIVE) H 07/28/18 12:29 Urine Ketones 5 mg/dL (NEGATIVE) 07/28/18 12:29 Urine Blood 5 /ul (NEGATIVE) H 07/28/18 12:29 Urine Nitrate Negative (NEGATIVE) 07/28/18 12:29 Urine Bilirubin Negative mg/dl (NEGATIVE) 07/28/18 12:29 Urine Urobilinogen Normal EU/dl (NORMAL) 07/28/18 12:29 Ur Leukocyte Esterase Negative /ul (NEGATIVE) 07/28/18 12:29 Urine RBC None seen /hpf (0-5) 07/28/18 12:29 Urine WBC None seen /hpf (0-5) 07/28/18 12:29 Ur Epithelial Cells 0-5 /hpf (0-5) 07/28/18 12:29 Urine Bacteria 1+ (NONE) H 07/28/18 12:29 Hyaline Casts Trace /LPF (NONE) 07/28/18 12:29 Urine Culture Comments No culture indicated 07/28/18 12:29 HOME MEDICATIONS Albuterol Sulfate [Ventolin Hfa] 1 puff IH QID PRN 07/28/18 [Last Taken Unknown] Atorvastatin Calcium [Lipitor] 80 mg PO DAILY 07/28/18 [Last Taken Unknown] Azithromycin [Zithromax] 250 mg PO DAILY 07/28/18 [Last Taken Unknown] Ezetimibe [Zetia] 10 mg PO DAILY 07/28/18 [Last Taken Unknown] Fluticasone Propionate [Flonase] 1 spray NS DAILY 07/28/18 [Last Taken Unknown] Fluticasone/Salmeterol [Advair 250-50 Diskus] 1 puff IH BID PRN 07/28/18 [Last Taken Unknown] Gabapentin [Neurontin] 300 mg PO QID 07/28/18 [Last Taken Unknown] Hydrochlorothiazide 12.5 mg PO DAILY 07/28/18 [Last Taken Unknown] Insulin Lispro [Humalog] 55 unit SQ TID 07/28/18 [Last Taken Unknown] Insulin Regular, Human [Humulin R U-500 Kwikpen] 110 unit SQ TID 07/28/18 [Last Taken Unknown] Methocarbamol [Robaxin] 1 - 2 tab PO BID PRN 07/28/18 [Last Taken Unknown] Metoprolol Tartrate [Lopressor] 25 mg PO BID 07/28/18 [Last Taken Unknown] Montelukast Sodium [Singulair] 10 mg PO HS 07/28/18 [Last Taken Unknown] Omeprazole 40 mg PO DAILY 07/28/18 [Last Taken Unknown] Tiotropium [place] [Spiriva] 18 mcg IH DAILY 07/28/18 [Last Taken Unknown] Topiramate [Topamax] 50 mg PO BID 07/28/18 [Last Taken Unknown] Venlafaxine HCl [Effexor] 75 mg PO TID 07/28/18 [Last Taken Unknown] metFORMIN HCL [Glucophage Xr] 500 mg PO QAM 07/28/18 [Last Taken Unknown] sitaGLIPtin PHOSPHATE [Januvia] 100 mg PO DAILY 07/28/18 [Last Taken Unknown] Allergies/Adverse Reactions: Allergies Allergy/AdvReac Type Severity Reaction Status Date / Time No Known Allergies Allergy Verified 07/28/18 17:57 - Planned Procedure Planned Procedure: ORIF right humerus Medication List Reviewed:: Yes Allergies Verified: Yes Medical History (Last Reviewed 07/29/18 @ 12:11 by Connor Leo CRNA) Coronary artery disease Asthma Diabetes mellitus type 2 in obese GERD (gastroesophageal reflux disease) HTN (hypertension) Migraines Obesity Sleep apnea Surgical History (Last Reviewed 07/29/18 @ 12:11 by Connor Leo CRNA) Hx laparoscopic cholecystectomy Hx of heart artery stent Hx of heart bypass surgery Family History (Last Reviewed 07/29/18 @ 12:11 by Connor Leo CRNA) Grandmother Diabetes Sister No problems noted. Mother Cancer Sister Heart disease - Family Anesthesia History Family History:: no untoward family reactions to anesthesia, no familial bleeding tendencies, no family history of clotting disorders, no family history of premature - Airway/Neck/Teeth Within Normal Limits:: Yes Teeth Condition: Intact Mallampatti Score: 2 Thyromental (T-M) distance: > 6 cm Mandibulo Hyoid distance: > 3 cm - Respiratory Respiratory: lungs clear Discussed smoking cessation including day of surgery: No Sleep Apnea currently treated: Yes Sleep Apnea by current assessment: No Discussed Risks/Treatment of JN: No - Cardiovascular Tolerates Activity: Poor Heart Sounds: S1 & S2, Regular - Anesthesia Assessment and Plan ASA Class: PS, IV Anesthesia Type Plan: General LMA, Block - Right ultrasound guided interscalene nerve block for postop analgesia
[2018-07-29] MEDS: ceFAZolin SODIUM 1 GM VIAL IV PRN (14:10)
[2018-07-29] MEDS ORDERED: INSULIN REGULAR, HUMAN 100 UNITS/ML VIAL IV ONE ×3 (14:54→17:48)
[2018-07-29] MEDS: GABAPENTIN 300 MG CAPSULE PO SCH ×4 (15:17→21:19)
[2018-07-29] MEDS: VENLAFAXINE HCL 75 MG TABLET PO SCH ×3 (15:17→21:18)
[2018-07-29] MEDS: TOPIRAMATE 50 MG TABLET PO SCH ×2 (15:17→21:20)
[2018-07-29] MEDS ORDERED: MAG HYDROX/ALUMINUM HYD/SIMETH 30 ML UDC PO PRN (17:24)
[2018-07-29] MEDS ORDERED: ONDANSETRON HCL/PF 2 MG/ML VIAL IV PRN (17:24)
[2018-07-29] MEDS ORDERED: diphenhydrAMINE HCL 50 MG/ML VIAL IV PRN (17:24)
[2018-07-29] MEDS ORDERED: ZOLPIDEM TARTRATE 5 MG TABLET PO PRN (17:24)
--- NOTE | 2018-07-29 17:24 | POSTOP NO ---
Date of Surgery: 07/29/18 Patient Tolerated the Procedure: Well Post Operative Diagnosis/Procedures: Shipfitter: Samuel Barney PA-C Post-operative Diagnosis: Four-part proximal right humerus fracture closed Finding: Above Procedure: Reduction internal fixation of right 4 part proximal humerus fracture with intraoperative interpretation of x-rays Estimated Blood Loss: 100 mL Specimens: None
--- NOTE | 2018-07-29 17:49 | ANES ---
Post Anesthesia Discharge - Transfer of Care Transfer of Care handoff given to nurse: Yes - Discharge from PACU Discharge from PACU when meets criteria: Yes - Discharge to ASU Discharge to ASU-no complications/pt stable: Yes
--- NOTE | 2018-07-29 17:52 | ANES ---
Anesthesia Procedure Note Procedure Note: ANESTHESIA PROCEDURE NOTE Date of Procedure: 07/29/2018. Time of procedure: 1310. Performed by: Connor Leo CRNA Vice President Tax: None. Preprocedure diagnosis: Right humerus fracture. Post procedure diagnosis: Same. Procedure: Right ultrasound guided interacalene nerve block for postoperative analgesia. Indications: The patient is a 58-year-old female, requesting right ultrasound- guided interscalene nerve block for postoperative analgesia related to right ORIF proximal humerus. Findings: See below. Details of the procedure: The tissue over the intended target site was cleansed with ChloraPrep. 1 ml Lidocaine 1 % was infiltrated to the skin and subcutaneous tissue. Under sterile technique and ultrasound guidance a 22-gauge block needle was inserted to the right brachial plexus nerve bundle between the anterior scalene and the middle scalene muscles. 40 mL's of 0.5% bupivacaine plus epinephrine 1:200,000 was injected after negative aspiration for blood. Needle tip and spread of local anesthetic around the brachial plexus was observed throughout the injection with realtime ultrasound visualization. The needle was removed intact. No complications were noted. The images were retained in the hospital medical database . EBL: Minimal. Fluids: N/A. Specimen: N/A. Post procedure condition: The patient tolerated the procedure well. No complications were noted. Thank you for this consultation. Connor Leo CRNA
[2018-07-29] MEDS: ceFAZolin SODIUM 1 GM in DEXTROSE 5 % IN WATER 100 ML IV SCH ×2 (20:15)
--- NOTE | 2018-07-29 21:05 | ANES ---
Post Anesthesia Assessment - Vital Signs Vitals: Last Vital Signs Temp 36.9 C 07/29/18 18:20 Pulse 77 07/29/18 18:35 Resp 14 07/29/18 18:35 BP 164/88 H 07/29/18 18:35 Pulse Ox 94 07/29/18 18:35 Airway Patency: Normal - Mental Status Level Of Consciousness: Awake - Pain Level Pain Score: 0 - N/V Assessment Nausea/Vomiting Presence: None Dehydration:: No
[2018-07-29] MEDS: FLUTICASONE/SALMETEROL 14 PUFF DISK.W.DEV IH SCH (21:13)
[2018-07-29] MEDS: TIOTROPIUM BROMIDE 5 CAP INHALER IH SCH (21:15)
[2018-07-29] MEDS: sitaGLIPtin PHOSPHATE 50 MG TABLET PO SCH (21:17)
[2018-07-29] MEDS: MONTELUKAST SODIUM 10 MG TABLET PO SCH (21:18)
[2018-07-29] MEDS: SENNOSIDES/DOCUSATE SODIUM 1 TAB TABLET PO SCH (21:20)
[2018-07-30] MEDS: ceFAZolin SODIUM 1 GM in DEXTROSE 5 % IN WATER 100 ML IV SCH ×6 (01:08→21:32)
[2018-07-30] MEDS: HYDROmorphone HCL 1 MG/ML DISP.SYRIN IV PRN (01:13)
[2018-07-30] MEDS: RINGER'S SOLUTION,LACTATED 1,000 ML IV PRN ×2 (05:12→16:29)
[2018-07-30 05:35] LABS: Hematocrit 36.4 % (37.0-47.0); Hemoglobin 11.1 gm/dL (12.5-16.0); Mean Cell Volume 88.6 fl (78-100); Mean Corpuscular Hgb Conc 30.5 g/dl (32-36); Mean Platelet Volume 12.1 fl (8-12.5); Platelet Count 211 K/mm3 (150-450); Red Blood Count 4.11 M/mm3 (4.2-5.4); Red Cell Distribution Width 13.8 % (11.5-14.0); White Blood Count 15.7 K/mm3 (4.0-10.5)
[2018-07-30 05:45] LABS: Anion Gap 6.7 mmol/L (6.8-13.8); BUN/Creatinine Ratio 20.8 (9.0-21.6); Calcium * 8.4 mg/dL (7.9-10.9); Carbon Dioxide 31.6 mmol/L (24-32.6); Estimated Creat Clear 81.3; Potassium 4.3 mmol/L (3.4-4.6)
[2018-07-30] MEDS ORDERED: ceFAZolin SODIUM 1 GM VIAL IV PRN (06:00)
[2018-07-30] MEDS: INSULIN REGULAR, HUMAN 100 UNITS/ML VIAL SC SCH (07:20)
[2018-07-30] MEDS: PANTOPRAZOLE SODIUM 20 MG TABLET.DR PO SCH (07:20)
[2018-07-30] MEDS: INSULIN LISPRO 100 UNITS/ML VIAL SC SCH ×2 (08:51→17:30)
[2018-07-30] MEDS: INSULIN DETEMIR 100 UNITS/ML VIAL SC SCH ×2 (08:52→21:48)
[2018-07-30] MEDS: VENLAFAXINE HCL 75 MG TABLET PO SCH ×2 (08:52→17:30)
[2018-07-30] MEDS: GABAPENTIN 300 MG CAPSULE PO SCH ×3 (08:54→21:36)
[2018-07-30] MEDS: METOPROLOL TARTRATE 25 MG TABLET PO SCH ×2 (08:54→21:36)
[2018-07-30] MEDS ORDERED: FUROSEMIDE 10 MG/ML VIAL IV ONE (09:00)
--- NOTE | 2018-07-30 09:46 | PREOP NOTE ---
Preoperative Progress Note - Preoperative Changes Changes to Preop Condition?: Changes Noted Below Changes noted since H&P was completed.: s/p right shoulder ORIF
[2018-07-30] MEDS ORDERED: HYDROmorphone HCL 1 MG/ML DISP.SYRIN IV PRN (10:37)
--- NOTE | 2018-07-30 12:10 | PN ---
Subjective - Date and Time Seen Date: 07/30/18 Time: 11:57 Subjective Narrative: Lori Torrez has had an uneventful night. She's had some breakthrough pain this morning and received 2 mg of Dilantin loaded and she is resting comfortably at this time. She had her right shoulder dislocation reduced yesterday evening and is to go to surgery after noon today for a left ORIF. Medically her blood sugars are much better and at 204 this morning. I have reviewed her insulin management. She is taking 110 units of regular Humulin insulin with each meal plus taking Humalog. Because both her short acting mealtime insulins. Regimen needs to be changed. I'm discontinuing the human regular insulin completely. Starting her on basal insulin with Levemir at 40 units twice a day and Humalog at 20 units before meals meals. This Will be a starting Place and will require a lot of adjusting. This new regimen will be started after her surgery this afternoon. Objective - Review of Systems Generalized/Overall Review: Reports: No Symptoms Reported EENTM: Reports: No Symptoms Reported Respiratory: Reports: No Symptoms Reported Cardiac: Reports: No Symptoms Reported Abdominal: Reports: No Symptoms Reported Genitourinary Symptoms: Reports: No Symptoms Reported Musculoskeletal Complaints: Reports: Other - Bilateral shoulder pain Neurological: Reports: No Symptoms Reported Skin: Reports: No Symptoms Reported Endocrine: Reports: No Symptoms Reported - Vitals Vitals: Last Vital Signs Temp 36.5 C 07/30/18 06:05 Pulse 90 07/30/18 10:48 Resp 18 07/30/18 10:48 BP 158/76 H 07/30/18 10:24 Pulse Ox 91 L 07/30/18 10:48 - Abnormal Lab Findings Abnormal Lab Findings: Abnormal Lab Results 07/30/18 07/30/18 Range/Units 05:29 05:29 WBC 15.7 H (4.0-10.5) K/mm3 RBC 4.11 L (4.2-5.4) M/mm3 Hgb 11.1 L (12.5-16.0) gm/dL Hct 36.4 L (37.0-47.0) % MCHC 30.5 L (32-36) g/dl Anion Gap 6.7 L (6.8-13.8) mmol/L - Exam Constitutional: Present: Alert, Oriented x3, Cooperative, Well developed, Well nourished, Mild distress, Middle aged, Obese ENT Exam: Present: normal ENT inspection, hearing grossly normal, pharynx normal, TMs normal Neck: Present: non-tender, full range of motion, supple, normal inspection, trachea midline, limited range of motion. Absent: lymphadenopathy (R), lymphadenopathy (L) Breasts: Present: Exam deferred Respiratory: Present: chest non-tender, lungs clear, normal breath sounds, no respiratory distress, no accessory muscle use Cardiovascular/Chest: Present: normal peripheral pulses, regular rate, rhythm, no chest tenderness, no edema, no gallop, no JVD, no murmur, no rub Abdomen: Present: Normal bowel sounds, soft, nontender, nondistended, no rebound tenderness, no hepatospenomegaly, no masses, obese /Rectal: Present: Exam deferred Extremity: Present: normal range of motion - Except for the shoulders., non- tender, normal inspection, no pedal edema, no calf tenderness, normal capillary refill Skin Exam: Present: normal color, warm/dry, no cyanosis Lymphatic: Present: no adenopathy Neurologic: 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 Reevaluate medically after surgery 2. Monitor and adjust new insulin dosing 3. Monitor pain management requirements - Problems/Diagnosis (1) Fracture dislocation of right shoulder joint Problem: Acute Qualifiers: Encounter type: initial encounter Fracture type: closed Qualified Code(s): S42.91XA - Fracture of right shoulder girdle, part unspecified, initial encounter for closed fracture (2) Fracture of humeral head, left, closed Problem: Acute Qualifiers: Encounter type: initial encounter Qualified Code(s): S42.292A - Other displaced fracture of upper end of left humerus, initial encounter for closed fracture (3) Type II diabetes mellitus Problem: Chronic Qualifiers: Diabetes mellitus nursing home insulin use: with nursing home use Diabetes mellitus complication status: without complication Qualified Code(s): E11.9 - Type 2 diabetes mellitus without complications; Z79.4 - long term care pharmacist (current) use of insulin (4) Hypertension Problem: Chronic Qualifiers: Hypertension type: essential hypertension Qualified Code(s): I10 - Essential (primary) hypertension (5) Fall Problem: Acute (6) Tongue biting Problem: Acute
[2018-07-30] MEDS: ceFAZolin SODIUM 1 GM VIAL IV PRN (15:00)
[2018-07-30] MEDS: TIOTROPIUM BROMIDE 5 CAP INHALER IH SCH (17:30)
[2018-07-30] MEDS: FLUTICASONE/SALMETEROL 14 PUFF DISK.W.DEV IH SCH (17:30)
[2018-07-30] MEDS: TOPIRAMATE 50 MG TABLET PO SCH ×2 (17:30→21:38)
[2018-07-30] MEDS: sitaGLIPtin PHOSPHATE 50 MG TABLET PO SCH (17:31)
--- NOTE | 2018-07-30 18:14 | POSTOP NO ---
Date of Surgery: 07/30/18 Patient Tolerated the Procedure: Well Post Operative Diagnosis/Procedures: Pumping Supervisor: Samuel Barney PA-C Post-operative Diagnosis: Comminuted displaced 4 part left proximal humerus fracture Finding: Above Procedure: Attempted open reduction internal fixation of left 4 part proximal humerus fracture, resection arthroplasty Estimated Blood Loss: 50 mL Specimens: Bone for disposal
--- NOTE | 2018-07-30 18:48 | ANES ---
Post Anesthesia Discharge - Transfer of Care Transfer of Care handoff given to nurse: Yes - Discharge from PACU Discharge from PACU when meets criteria: Yes
--- NOTE | 2018-07-30 18:48 | ANES ---
Anesthesia Pre Procedure Eval Vitals/Labs: Last Vital Signs Temp 36.8 C 07/30/18 18:45 Pulse 91 07/30/18 18:45 Resp 16 07/30/18 18:45 BP 203/88 H 07/30/18 18:45 Pulse Ox 97 07/30/18 18:45 Hemoglobin A1c 11.5 % (4.00-6.0) H 07/28/18 12:10 HOME MEDICATIONS Albuterol Sulfate [Ventolin Hfa] 1 puff IH QID PRN 07/28/18 [Last Taken Unknown] Atorvastatin Calcium [Lipitor] 80 mg PO DAILY 07/28/18 [Last Taken Unknown] Azithromycin [Zithromax] 250 mg PO DAILY 07/28/18 [Last Taken Unknown] Ezetimibe [Zetia] 10 mg PO DAILY 07/28/18 [Last Taken Unknown] Fluticasone Propionate [Flonase] 1 spray NS DAILY 07/28/18 [Last Taken Unknown] Fluticasone/Salmeterol [Advair 250-50 Diskus] 1 puff IH BID PRN 07/28/18 [Last Taken Unknown] Gabapentin [Neurontin] 300 mg PO QID 07/28/18 [Last Taken Unknown] Hydrochlorothiazide 12.5 mg PO DAILY 07/28/18 [Last Taken Unknown] Insulin Lispro [Humalog] 5 unit SQ TID 07/28/18 [Last Taken Unknown] Insulin Regular, Human [Humulin R U-500 Kwikpen] 110 unit SQ TID 07/28/18 [Last Taken Unknown] Methocarbamol [Robaxin] 1 - 2 tab PO BID PRN 07/28/18 [Last Taken Unknown] Metoprolol Tartrate [Lopressor] 25 mg PO BID 07/28/18 [Last Taken Unknown] Montelukast Sodium [Singulair] 10 mg PO HS 07/28/18 [Last Taken Unknown] Omeprazole 40 mg PO DAILY 07/28/18 [Last Taken Unknown] Tiotropium [place] [Spiriva] 18 mcg IH DAILY 07/28/18 [Last Taken Unknown] Topiramate [Topamax] 50 mg PO BID 07/28/18 [Last Taken Unknown] Venlafaxine HCl [Effexor] 75 mg PO TID 07/28/18 [Last Taken Unknown] metFORMIN HCL [Glucophage Xr] 500 mg PO QAM 07/28/18 [Last Taken Unknown] sitaGLIPtin PHOSPHATE [Januvia] 100 mg PO DAILY 07/28/18 [Last Taken Unknown] Allergies/Adverse Reactions: Allergies Allergy/AdvReac Type Severity Reaction Status Date / Time No Known Allergies Allergy Verified 07/28/18 17:57 - Planned Procedure Planned Procedure: Fall,Bilateral proximal humerus fractures Medication List Reviewed:: Yes Allergies Verified: Yes Medical History (Last Reviewed 07/30/18 @ 18:46 by Todd Vale CRNA) Coronary artery disease Asthma Diabetes mellitus type 2 in obese GERD (gastroesophageal reflux disease) HTN (hypertension) Migraines Obesity Sleep apnea Surgical History (Last Reviewed 07/30/18 @ 18:46 by Todd Vale CRNA) Hx laparoscopic cholecystectomy Hx of heart artery stent Hx of heart bypass surgery Family History (Last Reviewed 07/30/18 @ 18:46 by Todd Vale CRNA) Grandmother Diabetes Sister No problems noted. Mother Cancer Sister Heart disease - Family Anesthesia History Family History:: no untoward family reactions to anesthesia - Airway/Neck/Teeth Teeth Condition: Intact Neck Exam: limited range of motion Mallampatti Score: 3 Thyromental (T-M) distance: > 6 cm Mandibulo Hyoid distance: > 3 cm - Respiratory Respiratory: lungs clear Sleep Apnea currently treated: Yes - Cardiovascular Patient History - Cardiac/Respiratory: Coronary Heart Disease, CPAP/BiPAP Home Use Tolerates Activity: Poor Heart Sounds: S1 & S2, Regular - Anesthesia Assessment and Plan ASA Class: PS, IV Anesthesia Type Plan: General LMA - lt interscalene nerve block for postop analgesia
--- NOTE | 2018-07-30 18:53 | ANES ---
Anesthesia Procedure Note Procedure Note: ANESTHESIA PROCEDURE NOTE Date of procedure: 07/30/2018. Time of procedure:[]. 1440 Performed by: Sanjay Vale CRNA Certified Surgical Technologist: [] Winnie Watkins RN . Preprocedure diagnosis: []. Left humeral head fracture. Desire for postoperative analgesia Post procedure diagnosis: Same. Procedure:[] Ultrasound-guided left interscalene nerve block Indications: []. Postoperative analgesia Findings: [] She brought to operating room #4 and placed in a sitting position. She was sedated. Patient's left neck was prepped with ChloraPrep. Ultrasound was utilized to identify brachial plexus and left interscalene groove. A 22- gauge 2 inch Stimuplex regional block needle was advanced under ultrasound guidance until tip of needle was located just anterior to brachial plexus. 15 mL of Marcaine 0.5% with epinephrine 1 200,000 was injected with adequate spread of local anesthesia noted. Regional block needle was then repositioned until tip of needle was located just posterior to brachial plexus. Another 15 mL of Marcaine was injected total dose of 30 mL. Again adequate spread of local anesthesia was noted. EBL: Minimal. Fluids: N/A. Specimen: N/A. Post procedure condition: The patient tolerated the procedure well. No complications were noted. Thank you for this consultation Sanjay Vale CRNA
--- NOTE | 2018-07-30 18:53 | ANES ---
Post Anesthesia Assessment - Vital Signs Vitals: Last Vital Signs Temp 36.8 C 07/30/18 18:45 Pulse 91 07/30/18 18:45 Resp 16 07/30/18 18:45 BP 203/88 H 07/30/18 18:45 Pulse Ox 97 07/30/18 18:45 Airway Patency: Normal - Mental Status Level Of Consciousness: Drowsy, Lethargic - Pain Level Pain Score: 0 - N/V Assessment Nausea/Vomiting Presence: None Dehydration:: No
[2018-07-30] MEDS: SENNOSIDES/DOCUSATE SODIUM 1 TAB TABLET PO SCH (21:38)
[2018-07-30] MEDS: MONTELUKAST SODIUM 10 MG TABLET PO SCH (21:40)
[2018-07-31] MEDS: ceFAZolin SODIUM 1 GM in DEXTROSE 5 % IN WATER 100 ML IV SCH ×4 (02:58→07:48)
[2018-07-31] MEDS: oxyCODONE HCL/ACETAMINOPHEN 1 TAB TABLET PO PRN (05:00)
[2018-07-31 06:18] LABS: Hematocrit 32.7 % (37.0-47.0); Hemoglobin 10.1 gm/dL (12.5-16.0); Mean Cell Volume 87.4 fl (78-100); Mean Corpuscular Hgb Conc 30.9 g/dl (32-36); Mean Platelet Volume 12.5 fl (8-12.5); Platelet Count 225 K/mm3 (150-450); Red Blood Count 3.74 M/mm3 (4.2-5.4); Red Cell Distribution Width 13.9 % (11.5-14.0); White Blood Count 14.6 K/mm3 (4.0-10.5)
[2018-07-31 06:27] LABS: Anion Gap 12.3 mmol/L (6.8-13.8); BUN/Creatinine Ratio 17.6 (9.0-21.6); Calcium * 7.8 mg/dL (7.9-10.9); Carbon Dioxide 30.9 mmol/L (24-32.6); Estimated Creat Clear 68.8; Potassium 3.2 mmol/L (3.4-4.6)
[2018-07-31] MEDS: INSULIN LISPRO 100 UNITS/ML VIAL SC SCH ×3 (07:46→17:35)
[2018-07-31] MEDS: PANTOPRAZOLE SODIUM 20 MG TABLET.DR PO SCH (07:47)
[2018-07-31] MEDS: HYDROmorphone HCL 2 MG/ML VIAL IV PRN (08:52)
[2018-07-31] MEDS: RINGER'S SOLUTION,LACTATED 1,000 ML IV PRN (08:56)
[2018-07-31] MEDS: FLUTICASONE/SALMETEROL 14 PUFF DISK.W.DEV IH SCH (08:57)
[2018-07-31] MEDS: INSULIN DETEMIR 100 UNITS/ML VIAL SC SCH ×2 (08:58→21:17)
[2018-07-31] MEDS: sitaGLIPtin PHOSPHATE 50 MG TABLET PO SCH (08:58)
[2018-07-31] MEDS: VENLAFAXINE HCL 75 MG TABLET PO SCH ×3 (08:58→17:35)
[2018-07-31] MEDS: METOPROLOL TARTRATE 25 MG TABLET PO SCH ×2 (08:59→21:17)
[2018-07-31] MEDS: HYDROCHLOROTHIAZIDE 12.5 MG CAPSULE PO SCH (08:59)
[2018-07-31] MEDS: TOPIRAMATE 50 MG TABLET PO SCH ×2 (08:59→21:18)
[2018-07-31] MEDS: TIOTROPIUM BROMIDE 5 CAP INHALER IH SCH (08:59)
[2018-07-31] MEDS: GABAPENTIN 300 MG CAPSULE PO SCH ×4 (08:59→21:18)
--- NOTE | 2018-07-31 10:26 | PN ---
Subjective - Date and Time Seen Date: 07/31/18 Time: 09:20 Subjective Narrative: Lori is hypersomnolent this morning. Pupils are pinpoint. I expect too much narcotic. She is arousable and answers yes/no questions appropriately but then goes right back to sleep. Apparently the L. shoulder is too badly damaged to be primarily repaired and so a L. TSA is planned for Thursday. She needs to get out of bed to prevent pneumonia and skin breakdown. Laura has recommended incentive spectrometry and I agree and have ordered it. Her BSs is 275 this morning probably from the surgical trauma yesterday. I have adjusted her insulins some. I DC'd the Januvia for now. morning lab ordered. Objective - Review of Systems Generalized/Overall Review: Reports: Weakness, Malaise EENTM: Reports: No Symptoms Reported Respiratory: Reports: No Symptoms Reported Cardiac: Reports: No Symptoms Reported Abdominal: Reports: No Symptoms Reported Genitourinary Symptoms: Reports: No Symptoms Reported Musculoskeletal Complaints: Reports: Joint Pain - shoulders Neurological: Reports: Other - hypersomnolent Skin: Reports: No Symptoms Reported Endocrine: Reports: No Symptoms Reported - Vitals Vitals: Last Vital Signs Temp 36.7 C 07/31/18 06:20 Pulse 83 07/31/18 08:59 Resp 12 07/31/18 06:20 BP 170/75 H 07/31/18 08:59 Pulse Ox 96 07/31/18 06:20 - Abnormal Lab Findings Abnormal Lab Findings: Abnormal Lab Results 07/31/18 07/31/18 Range/Units 05:30 05:30 WBC 14.6 H (4.0-10.5) K/mm3 RBC 3.74 L (4.2-5.4) M/mm3 Hgb 10.1 L (12.5-16.0) gm/dL Hct 32.7 L (37.0-47.0) % MCHC 30.9 L (32-36) g/dl Plasma Sodium 143 H (130-142) mmol/L Potassium 3.2 L D (3.4-4.6) mmol/L Random Glucose 297 H D (70-110) mg/dL Calcium 7.8 L (7.9-10.9) mg/dL - Exam Constitutional: Present: Oriented x3, Cooperative, Well developed, Well nourished, Mild distress, Lethargic, Somnolent, Middle aged, Obese ENT Exam: Present: normal ENT inspection, hearing grossly normal, pharynx normal, TMs normal Neck: Present: non-tender, full range of motion, supple, normal inspection, trachea midline Breasts: Present: Exam deferred Respiratory: Present: chest non-tender Cardiovascular/Chest: Present: normal peripheral pulses, regular rate, rhythm, no chest tenderness, no edema, no gallop, no JVD, no murmur, no rub Abdomen: Present: Normal bowel sounds, soft, nontender, nondistended, no rebound tenderness, no hepatospenomegaly, no masses, obese /Rectal: Present: Exam deferred Extremity: Present: normal range of motion Skin Exam: Present: normal color, warm/dry, no cyanosis Lymphatic: Present: no adenopathy Neurologic: Present: second baller II-XII nml as tested, normal mood/affect, oriented x 3 Appearance: Present: appropriate appearance, appropriate insight, neat, no memory impairment Eye contact: Present: cooperative, good eye contact, decreased rate of speech Thoughts: Present: normal thought pattern, no apparent hallucination Assessment/Plan Plan Narrative: 1. up in chair if possible 2. Add incentive spirometry 3. Increase Levemir and Humalog. DC Januvia. 4. Morning lab. 5. decrease Dilaudid to 1mg q 2 hrs prn. - Problems/Diagnosis (1) Fracture dislocation of right shoulder joint Problem: Acute Qualifiers: Encounter type: initial encounter Fracture type: closed Qualified Code(s): S42.91XA - Fracture of right shoulder girdle, part unspecified, initial encounter for closed fracture (2) Fracture of humeral head, left, closed Problem: Acute Qualifiers: Encounter type: initial encounter Qualified Code(s): S42.292A - Other displaced fracture of upper end of left humerus, initial encounter for closed fracture (3) Type II diabetes mellitus Problem: Chronic Qualifiers: Diabetes mellitus [facility] insulin use: with tank terminal 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
--- NOTE | 2018-07-31 10:47 | PN ---
Subjective - Date and Time Seen Date: 07/31/18 Time: 10:45 Subjective Narrative: Subjective: Reports pain and somnolence. Was able to get to the chair with therapy. Tolerating by mouth intake. Denies any nausea or vomiting. Physical exam: Alert and oriented to person, place and time Bilateral upper Extremity: Palpable radial pulse. Sensation grossly intact to light touch. Dressings clean and dry. In the sling on the right arm, left arm supported. She is able to move her fingers and wrist and has pain with any shoulder range of motion Assessment: Postop day 1 status post resectional arthroplasty left shoulder, postop day 2 open reduction internal fixation of right proximal humerus fracture Plan: Intraoperatively was determined that her left shoulder was unreconstructable and thus the plan is for reverse total shoulder arthroplasty on the left on Thursday. She will be nonweightbearing bilateral upper extremities at this time. She can do gentle range of motion of her right shoulder. No range of motion to the left shoulder. Continue with 24 hours worth of Ancef, pain control, encourage incentive spirometry, encourage mobility as tolerated and she will be prepared for surgical intervention on Thursday. Objective - Vitals Vitals: Last Vital Signs Temp 36.7 C 07/31/18 06:20 Pulse 83 07/31/18 08:59 Resp 12 07/31/18 06:20 BP 170/75 H 07/31/18 08:59 Pulse Ox 96 07/31/18 06:20 - Abnormal Lab Findings Abnormal Lab Findings: Abnormal Lab Results 07/31/18 07/31/18 Range/Units 05:30 05:30 WBC 14.6 H (4.0-10.5) K/mm3 RBC 3.74 L (4.2-5.4) M/mm3 Hgb 10.1 L (12.5-16.0) gm/dL Hct 32.7 L (37.0-47.0) % MCHC 30.9 L (32-36) g/dl Plasma Sodium 143 H (130-142) mmol/L Potassium 3.2 L D (3.4-4.6) mmol/L Random Glucose 297 H D (70-110) mg/dL Calcium 7.8 L (7.9-10.9) mg/dL Assessment/Plan - Problems/Diagnosis (1) Proximal humerus fracture Problem: Acute Qualifiers: Encounter type: subsequent encounter Fracture type: closed Fracture morphology: other fracture Fracture alignment: displaced Laterality: left (2) Fracture dislocation of right shoulder joint Problem: Acute Qualifiers: Encounter type: subsequent encounter Fracture type: closed
[2018-07-31] MEDS: MONTELUKAST SODIUM 10 MG TABLET PO SCH (21:18)
[2018-07-31] MEDS: SENNOSIDES/DOCUSATE SODIUM 1 TAB TABLET PO SCH (21:18)
[2018-08-01] MEDS: ACETAMINOPHEN 500 MG TABLET PO PRN (05:26)
[2018-08-01 06:13] LABS: Hematocrit 29.9 % (37.0-47.0); Hemoglobin 9.3 gm/dL (12.5-16.0); Mean Cell Volume 86.2 fl (78-100); Mean Corpuscular Hemoglobin 26.8 pg (27-31); Mean Corpuscular Hgb Conc 31.1 g/dl (32-36); Neutrophil # 9.3 K/mm3 (1.3-6.0); Neutrophil % 72.4 % (42-75.0); Platelet Count 180 K/mm3 (150-450); Red Blood Count 3.47 M/mm3 (4.2-5.4); Red Cell Distribution Width 13.9 % (11.5-14.0); White Blood Count 12.9 K/mm3 (4.0-10.5)
[2018-08-01 06:25] LABS: BUN/Creatinine Ratio 14.3 (9.0-21.6); Calcium * 8.3 mg/dL (7.9-10.9); Carbon Dioxide 30.9 mmol/L (24-32.6); Estimated Creat Clear 83.6; Potassium 2.9 mmol/L (3.4-4.6)
[2018-08-01] MEDS: PANTOPRAZOLE SODIUM 20 MG TABLET.DR PO SCH (07:09)
[2018-08-01] MEDS: INSULIN LISPRO 100 UNITS/ML VIAL SC SCH ×3 (07:09→21:12)
[2018-08-01] MEDS: RINGER'S SOLUTION,LACTATED 1,000 ML IV PRN (07:13)
[2018-08-01] MEDS: oxyCODONE HCL/ACETAMINOPHEN 1 TAB TABLET PO PRN ×2 (08:00→18:22)
[2018-08-01] MEDS: METOPROLOL TARTRATE 25 MG TABLET PO SCH ×2 (08:28→22:07)
[2018-08-01] MEDS: VENLAFAXINE HCL 75 MG TABLET PO SCH ×3 (08:28→17:18)
[2018-08-01] MEDS: GABAPENTIN 300 MG CAPSULE PO SCH ×4 (08:28→22:08)
[2018-08-01] MEDS: FLUTICASONE/SALMETEROL 14 PUFF DISK.W.DEV IH SCH (08:29)
[2018-08-01] MEDS: TIOTROPIUM BROMIDE 5 CAP INHALER IH SCH (08:29)
[2018-08-01] MEDS: INSULIN DETEMIR 100 UNITS/ML VIAL SC SCH ×2 (08:29→22:05)
[2018-08-01] MEDS: HYDROCHLOROTHIAZIDE 12.5 MG CAPSULE PO SCH (08:29)
[2018-08-01] MEDS: TOPIRAMATE 50 MG TABLET PO SCH ×2 (08:29→22:09)
--- NOTE | 2018-08-01 12:02 | PN ---
Subjective - Date and Time Seen Date: 08/01/18 Time: 10:15 Subjective Narrative: Lori is asleep with her c-pap device on and she is still snoring around it. She remains hypersomnolent. Lab: Glucose 276 inspite of large doses of insulin. Her hb is down to 9.3 grams. K+ 2.9. CO2 unchanged @ 30.9. Plan: Start K-riders 10meq per and give 4 units. Start PO Kcl. IV is LR @ 30cc/hr. Start PO Kcl 20meq tidwm Check BMP and BNP at 1900 this evening. Type and hold 2 units PRBCs. She appears to have a cutaneous candidiasis in the sukhjinder and skin fold areas. Added Nystatin powder. 3 drug interactions with fluconozole so order was cancelled. Repeat morning lab as well. Objective - Review of Systems Generalized/Overall Review: Reports: Weakness, Malaise EENTM: Reports: No Symptoms Reported Respiratory: Reports: No Symptoms Reported Cardiac: Reports: No Symptoms Reported Abdominal: Reports: No Symptoms Reported Genitourinary Symptoms: Reports: No Symptoms Reported Musculoskeletal Complaints: Reports: Joint Pain - both shoulders. Neurological: Reports: No Symptoms Reported Skin: Reports: Rash - cutaneous candidiasis sukhjinder and skin fold areas. Endocrine: Reports: Other - BSs remain uncontrolled. - Vitals Vitals: Last Vital Signs Temp 36.9 C 08/01/18 06:21 Pulse 75 08/01/18 10:42 Resp 17 08/01/18 10:06 BP 172/73 H 08/01/18 08:28 Pulse Ox 98 08/01/18 10:06 - Abnormal Lab Findings Abnormal Lab Findings: Abnormal Lab Results 08/01/18 08/01/18 Range/Units 05:50 05:50 WBC 12.9 H (4.0-10.5) K/mm3 RBC 3.47 L (4.2-5.4) M/mm3 Hgb 9.3 L (12.5-16.0) gm/dL Hct 29.9 L (37.0-47.0) % MCH 26.8 L (27-31) pg MCHC 31.1 L (32-36) g/dl Immature Gran % (Auto) 1.90 H (0.001-0.429) % Immature Gran # (Auto) 0.25 H (0.000-0.0310) K/mm3 Lymphocytes % 13.9 L (20-51) % Monocytes % 10.2 H (0.0-9) % Neutrophils # 9.3 H (1.3-6.0) K/mm3 Monocytes # 1.3 H (0.0-1.0) k/mm3 Potassium 2.9 L (3.4-4.6) mmol/L Random Glucose 271 H (70-110) mg/dL - Exam Constitutional: Present: Oriented x3, Cooperative, Mild distress, Lethargic, Somnolent, Middle aged ENT Exam: Present: normal ENT inspection, hearing grossly normal, pharynx normal, TMs normal, hard of hearing, TM bulging Neck: Present: non-tender, full range of motion, supple Breasts: Present: Exam deferred Respiratory: Present: chest non-tender, lungs clear, normal breath sounds, no respiratory distress, no accessory muscle use Cardiovascular/Chest: Present: normal peripheral pulses, regular rate, rhythm, no chest tenderness, no edema, no gallop, no JVD, no murmur, no rub Abdomen: Present: Normal bowel sounds, soft, nontender, nondistended, no rebound tenderness, no hepatospenomegaly, no masses, obese /Rectal: Present: Exam deferred, Other - sukhjinder candidiasis Extremity: Present: other - Unable to meove either shoulder. L. TSA planned for tomorrow by Dr. Adame. Skin Exam: Present: normal color, warm/dry, skin rash - sukhjinder and skinfold candidiasis. 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 Absent: normal mood /affect Assessment/Plan Plan Narrative: See above for plan. 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: with group home use Diabetes mellitus complication status: without complication Qualified Code(s): E11.9 - Type 2 diabetes mellitus without complications; 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 LR has K+ in it and is only at a 300cc/hr rate. She did have 1 dose of lasix that may have pushed it down.
[2018-08-01] MEDS: NYSTATIN 15 APPL BTL TP SCH ×2 (12:05→22:07)
[2018-08-01] MEDS: POTASSIUM CHLORIDE 20 MEQ TABLET.SA PO SCH ×2 (12:07→17:18)
[2018-08-01] MEDS: POTASSIUM CHLORIDE IN WATER 100 ML IV SCH ×4 (12:08→15:39)
[2018-08-01] MEDS ORDERED: ceFAZolin SODIUM/DEXTROSE,ISO 2 GM/50 ML BAG IV SCH (15:32)
--- NOTE | 2018-08-01 15:34 | PN ---
Subjective - Date and Time Seen Date: 08/01/18 Time: 15:33 Subjective Narrative: Subjective: Reports pain 6/10 and somnolence. She is sitting in the chair at this time sleeping. Tolerating by mouth intake. Denies any nausea or vomiting. Physical exam: Alert and oriented to person, place and time Bilateral upper Extremity: Palpable radial pulse. Sensation grossly intact to light touch. Dressings clean and dry. In the sling on the right arm, left arm supported. She is able to move her fingers and wrist and has pain with any shoulder range of motion Assessment: Postop day 2 status post resectional arthroplasty left shoulder, postop day 3 open reduction internal fixation of right proximal humerus fracture Plan: The plan is for reverse total shoulder arthroplasty on the left on tomorrow. She will be nonweightbearing bilateral upper extremities at this time. She can do gentle range of motion of her right shoulder. No range of motion to the left shoulder. Nothing by mouth after midnight, pain control, encourage incentive spirometry, encourage mobility as tolerated and she will be prepared for definitive surgical intervention. Objective - Vitals Vitals: Last Vital Signs Temp 36.5 C 08/01/18 13:21 Pulse 70 08/01/18 13:21 Resp 12 08/01/18 13:21 BP 133/69 08/01/18 13:21 Pulse Ox 94 08/01/18 13:21 - Abnormal Lab Findings Abnormal Lab Findings: Abnormal Lab Results 08/01/18 08/01/18 Range/Units 05:50 05:50 WBC 12.9 H (4.0-10.5) K/mm3 RBC 3.47 L (4.2-5.4) M/mm3 Hgb 9.3 L (12.5-16.0) gm/dL Hct 29.9 L (37.0-47.0) % MCH 26.8 L (27-31) pg MCHC 31.1 L (32-36) g/dl Immature Gran % (Auto) 1.90 H (0.001-0.429) % Immature Gran # (Auto) 0.25 H (0.000-0.0310) K/mm3 Lymphocytes % 13.9 L (20-51) % Monocytes % 10.2 H (0.0-9) % Neutrophils # 9.3 H (1.3-6.0) K/mm3 Monocytes # 1.3 H (0.0-1.0) k/mm3 Potassium 2.9 L (3.4-4.6) mmol/L Random Glucose 271 H (70-110) mg/dL Assessment/Plan - Problems/Diagnosis (1) Proximal humerus fracture Problem: Acute Qualifiers: Encounter type: subsequent encounter Fracture type: closed Fracture morphology: other fracture Fracture alignment: displaced Laterality: left (2) Fracture dislocation of right shoulder joint Problem: Acute Qualifiers: Encounter type: subsequent encounter Fracture type: closed
[2018-08-01] MEDS: MAGNESIUM HYDROXIDE 30 ML UDC PO PRN (17:18)
[2018-08-01 21:01] LABS: BUN/Creatinine Ratio 18.6 (9.0-21.6); Calcium * 8.5 mg/dL (7.9-10.9); Carbon Dioxide 30.2 mmol/L (24-32.6); Estimated Creat Clear 83.6
[2018-08-01 21:26] LABS: Potassium 4.2 mmol/L (3.4-4.6)
[2018-08-01] MEDS: SENNOSIDES/DOCUSATE SODIUM 1 TAB TABLET PO SCH (22:08)
[2018-08-01] MEDS: MONTELUKAST SODIUM 10 MG TABLET PO SCH (22:09)
[2018-08-02] MEDS: oxyCODONE HCL/ACETAMINOPHEN 1 TAB TABLET PO PRN ×2 (04:39→10:09)
[2018-08-02] MEDS: PANTOPRAZOLE SODIUM 20 MG TABLET.DR PO SCH (07:00)
[2018-08-02] MEDS: INSULIN LISPRO 100 UNITS/ML VIAL SC SCH ×3 (08:29→17:48)
[2018-08-02 08:41] LABS: Hemoglobin 9.3 gm/dL (12.5-16.0); Mean Cell Volume 87.2 fl (78-100); Mean Platelet Volume 11.8 fl (8-12.5); Platelet Count 230 K/mm3 (150-450); Red Blood Count 3.44 M/mm3 (4.2-5.4); White Blood Count 11.8 K/mm3 (4.0-10.5)
[2018-08-02 08:51] LABS: Anion Gap 8.1 mmol/L (6.8-13.8); BUN/Creatinine Ratio 15.5 (9.0-21.6); Calcium * 7.9 mg/dL (7.9-10.9); Carbon Dioxide 33.3 mmol/L (24-32.6); Estimated Creat Clear 82.4; Potassium 3.4 mmol/L (3.4-4.6)
[2018-08-02] MEDS ORDERED: FLUCONAZOLE 200 MG TABLET PO SCH (09:00)
[2018-08-02] MEDS: NYSTATIN 15 APPL BTL TP SCH ×2 (09:59→20:35)
[2018-08-02] MEDS: POTASSIUM CHLORIDE 20 MEQ TABLET.SA PO SCH ×3 (10:11→17:45)
[2018-08-02] MEDS: VENLAFAXINE HCL 75 MG TABLET PO SCH ×3 (10:11→17:45)
[2018-08-02] MEDS: TOPIRAMATE 50 MG TABLET PO SCH ×2 (10:11→20:36)
[2018-08-02] MEDS: GABAPENTIN 300 MG CAPSULE PO SCH ×4 (10:11→20:35)
[2018-08-02] MEDS: METOPROLOL TARTRATE 25 MG TABLET PO SCH ×2 (10:12→20:40)
[2018-08-02] MEDS: HYDROCHLOROTHIAZIDE 12.5 MG CAPSULE PO SCH (10:12)
[2018-08-02] MEDS: FLUTICASONE/SALMETEROL 14 PUFF DISK.W.DEV IH SCH (10:14)
[2018-08-02] MEDS: INSULIN DETEMIR 100 UNITS/ML VIAL SC SCH ×2 (10:15→20:39)
[2018-08-02] MEDS: TIOTROPIUM BROMIDE 5 CAP INHALER IH SCH (10:27)
--- NOTE | 2018-08-02 11:33 | PN ---
Subjective - Date and Time Seen Date: 08/02/18 Time: 10:00 Subjective Narrative: Lori is more alert today. She is sitting up in a chair awake and doesn't appear to be in any distress. She is conversant and appropriate. She has been prepared for a left total shoulder arthroplasty to be done this afternoon by Dr. Adame. I reviewed her lab work. Her potassium is 3.4 this morning and blood sugars 146. The hemoglobin is the same as yesterday at 9.3 g. I have typed and crossed 2 units of packed red blood cells to be held until needed. Dr. Adame is aware of the blood is available. I will also order chest x-ray this is a preop clearance. Objective - Review of Systems Generalized/Overall Review: Reports: Weakness EENTM: Reports: No Symptoms Reported Respiratory: Reports: No Symptoms Reported Cardiac: Reports: No Symptoms Reported Abdominal: Reports: No Symptoms Reported Genitourinary Symptoms: Reports: No Symptoms Reported Musculoskeletal Complaints: Reports: Joint Pain Neurological: Reports: No Symptoms Reported Skin: Reports: No Symptoms Reported Endocrine: Reports: No Symptoms Reported - Vitals Vitals: Last Vital Signs Temp 36.6 C 08/02/18 06:20 Pulse 79 08/02/18 10:12 Resp 14 08/02/18 06:20 BP 154/76 H 08/02/18 10:12 Pulse Ox 96 08/02/18 06:20 - Abnormal Lab Findings Abnormal Lab Findings: Abnormal Lab Results 08/01/18 08/01/18 08/01/18 Range/Units 11:55 19:45 20:27 WBC (4.0-10.5) K/mm3 RBC (4.2-5.4) M/mm3 Hgb (12.5-16.0) gm/dL Hct (37.0-47.0) % MCHC (32-36) g/dl Immature Gran % (Auto) (0.001-0.429) % Immature Gran # (Auto) (0.000-0.0310) K/mm3 Monocytes % (0.0-9) % Eosinophils % (0.0-3.0) % Neutrophils # (1.3-6.0) K/mm3 Monocytes # (0.0-1.0) k/mm3 Carbon Dioxide (24-32.6) mmol/L Random Glucose 269 H (70-110) mg/dL B-Natriuretic Peptide 592 H (5-205) pg/mL Crossmatch See Detail 08/02/18 08/02/18 Range/Units 08:22 08:22 WBC 11.8 H (4.0-10.5) K/mm3 RBC 3.44 L (4.2-5.4) M/mm3 Hgb 9.3 L (12.5-16.0) gm/dL Hct 30.0 L (37.0-47.0) % MCHC 31.0 L (32-36) g/dl Immature Gran % (Auto) 3.00 H (0.001-0.429) % Immature Gran # (Auto) 0.35 H (0.000-0.0310) K/mm3 Monocytes % 9.3 H (0.0-9) % Eosinophils % 5.3 H (0.0-3.0) % Neutrophils # 7.0 H (1.3-6.0) K/mm3 Monocytes # 1.1 H (0.0-1.0) k/mm3 Carbon Dioxide 33.3 H (24-32.6) mmol/L Random Glucose 146 H D (70-110) mg/dL B-Natriuretic Peptide (5-205) pg/mL Crossmatch - EKG/Xray Findings EKG read: Reviewed by me XRAY: chest - Shows atelectasis and left lower lobe. There is no clinical correlation for pneumonia. There is no evidence of fluid overload. - Exam Constitutional: Present: Alert, Oriented x3, Cooperative, Well developed, Well nourished, Mild distress, Lethargic, Middle aged ENT Exam: Present: normal ENT inspection, hearing grossly normal, pharynx normal, TMs normal Neck: Present: non-tender, full range of motion, supple Breasts: Present: Exam deferred Respiratory: Present: chest non-tender, lungs clear, normal breath sounds, no respiratory distress, no accessory muscle use Cardiovascular/Chest: Present: normal peripheral pulses, regular rate, rhythm, no chest tenderness, no edema, no gallop, no JVD, no murmur, no rub Abdomen: Present: Normal bowel sounds, soft, nontender, nondistended, no rebound tenderness, no hepatospenomegaly, no masses, obese /Rectal: Present: Exam deferred Extremity: Present: normal range of motion - Lower extremities. Upper extremities are immobilized because of recent surgeries. 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 tested, no motor/sensory deficits, alert, normal mood/affect, oriented x 3, motor weakness Appearance: Present: appropriate appearance, appropriate insight, neat, no memory impairment Eye contact: Present: cooperative, good eye contact, normal speech Thoughts: Present: normal thought pattern, no apparent hallucination Assessment/Plan - Problems/Diagnosis (1) Fracture dislocation of right shoulder joint Problem: Acute Qualifiers: Encounter type: subsequent encounter Fracture type: closed (2) Fracture of humeral head, left, closed Problem: Acute Qualifiers: Encounter type: initial encounter Qualified Code(s): S42.292A - Other displaced fracture of upper end of left humerus, initial encounter for closed fracture (3) Type II diabetes mellitus Problem: Chronic Qualifiers: Diabetes mellitus longwall machine operator helper insulin use: with longwall machine operator helper use Diabetes mellitus complication status: without complication Qualified Code(s): E11.9 - Type 2 diabetes mellitus without complications; Z79.4 - alf (current) use of insulin (4) Hypertension Problem: Chronic Qualifiers: Hypertension type: essential hypertension Qualified Code(s): I10 - Essential (primary) hypertension (5) Fall Problem: Acute (6) Tongue biting Problem: Acute (7) Anemia Problem: Acute Qualifiers: Anemia type: unspecified type Qualified Code(s): D64.9 - Anemia, unspecified (8) Hypokalemia Problem: Resolved
[2018-08-02] MEDS ORDERED: ceFAZolin SODIUM 1 GM VIAL IV PRN (13:15)
[2018-08-02] MEDS: RINGER'S SOLUTION,LACTATED 1,000 ML IV PRN ×2 (13:35→15:33)
--- NOTE | 2018-08-02 15:42 | OR ---
Operative Report - Dictated Report Narrative: DATE OF PROCEDURE: 08/02/2018 PHYSICIAN: Aureliano Adame MD TRUCK SWITCHER: Samuel Barney PA-C (provided an essential educated skilled set of hands which assisted with positioning, exposure, retraction, irrigation, manipulation, suturing, wound closure, bandages, and placement of sling all of which was not able to be performed by the available operating room crew) PREOPERATIVE DIAGNOSIS: Closed left comminuted displaced 4 part proximal humerus fracture. POSTOPERATIVE DIAGNOSIS: Closed left comminuted displaced 4 part proximal humerus fracture. OPERATIONS AND PROCEDURES: Cemented left reverse total shoulder arthroplasty. ANESTHESIA: General plus regional. COMPLICATIONS: None. DRAINS: None. SPECIMENS: Bone for disposal. ESTIMATED BLOOD LOSS: 50 mL. RETAINED IMPLANTS: 1. DePuy Delta Xtend cementless metaglene. 2. Delta Xtend glenosphere, 38 mm standard. 3. Delta Xtend size monobloc humeral epiphysis size 1 x 10 mm stem. 4. Delta Xtend standard polyethylene size 38 plus 9 mm. 6. Metaglene locking screws, 36 mm and 36 mm in length. 7. Nonlocking metaglene screws, 18 mm x 2 . INDICATIONS FOR PROCEDURE: Mrs. Torrez is a 58-year-old female who fell at work sustaining bilateral proximal humerus fracture dislocations. She underwent open reduction internal fixation on the right side. On the left side and attempts made at fixation however due to the comminution and the complete lack of soft tissue attachment to the humeral head we elected to proceed with reverse total shoulder arthroplasty. She wished to proceed with surgical treatment. The risks, benefits, and alternatives were discussed in clinic, including the risk of , blood clots, bleeding, infection, nerve/tendon/blood vessel injury, malposition of components, failure of components, wear or limited range of motion, stiffness, and need for additional procedures, and she wished to proceed. Consent was obtained here in the clinic. DESCRIPTION OF PROCEDURE: After marking the correct extremity on the floor, the patient was taken to the operating room. A timeout was performed. IV antibiotics consisting of Ancef were administered prior to procedure. The regional followed by general anesthetic was induced by the nurse artificial pearl maker at my request. She was then transitioned to beach chair position with all bony prominences well padded. The head in neutral, legs with SCDs and supported,and the nonoperative arm supported. The surgical arm was prescrubbed with alchol then prepped and draped in the standard sterile fashion and the skin was covered with ioban. After removing the previously placed suture and jamal, the previously performed deltopectoral incision was made and blunt dissection was carried down through the skin. The cephalic vein was identified, protected, and retracted. We then went through the deltopectoral interval, exposing the proximal humerus. The previously tagged and identified the greater and lesser tuberosity fractures were tagged. A tag suture was placed in subscapularis tendon as well as the anterior capsule, the infraspinatus and supraspinatus tendons were also tagged with #2 FiberWire The glenoid was exposed. The remaining biceps tendon and labrum were resected. Using tractors, the glenoid was exposed and a guidewire was placed just posterior and inferior to the center of the glenoid. This was made so that it directed slightly superiorly but otherwise perpendicular to the glenoid on the axillary plane. Protecting the surrounding soft tissues, a reamer was utilized in order to remove the remaining cartilage. A basket hand braider was utilized in order to resect the superior cartilage, and this resulted in a good overall appearance of the glenoid. The center drill lug hole was drilled and had good circumferential bone. The metaglene was then impacted into place and oriented for placement of screws along the mid plane in the superior and inferior quadrants of the glenoid as well as anterior to posterior screws. These were drilled and had appropriate overall length of screws on the superior and inferior metaglene screws. Good purchase was obtained with a 36 mm screw superiorly and 36 mm screw inferiorly. The anterior and posterior screws were drilled and 18 mm anterior and 18mm posterior nonlocking screws were placed. We then locked the superior and inferior screws into place. This gave good overall compression down to the glenoid with flat overall appearance and an appropriate alignment. Then returned our attention to the proximal humerus. Next were serial reamers up to the size 10 were utilized, which gave good overall cortical contact. The trial stem was assembled on the back table and impacted into place. After placing the trial stem and placed the trials of polyethylene inserts and found that the 9mm gave good overall longitudinal traction with no gapping. The shoulder was able to reach 140 degrees of forward flexion and 130 degrees of abduction, external rotation was to 80 degrees and with fulcrum and armpit were unable to hinge the joint out of place, and there was no essentially no gapping of the polyethylene off the humeral head nor any signs of impingement on the glenoid neck. We felt that these were the appropriately placed and sized implants. We then dislocated the shoulder, removed the trial implants, thoroughly irrigated the humerus. The femoral canal was cleansed, a restrictor plug was placed distally, and the canal thoroughly irrigated in preparation for cementing. The cement was mixed per the vegetable canner's instructions and placed in the cement gun. Once it was felt to be the appropriate viscosity it was then placed and compressed into the canal. The final implants into place in the prior determined retroversion of 10. The trial polyethylene was utilized again and was noted that the actual stem and the trial stem were equal in tension, and thus the final polyethylene was impacted into place. The shoulder was reduced, again noted to be stable, was then thoroughly irrigated. #2 fiber wires placed through the holes in order to stabilize the greater and lesser tuberosities. The previously placed FiberWire as well as the stem fiber wires were sutured through the bony fragments as well as between the tendons in order to stabilize the tuberosities. he deltopectoral interval was closed with #1 Vicryl. The deep tissues were then closed with #0 Vicryl, subcutaneous with 3-0 Vicryl, and the skin with jamal. Xeroform, 4 x 4, ABD, soft roll, and forearm Eric was applied. The patient was placed in a shoulder sling, awoken, and transferred to postanesthesia care in stable condition. All sponge, needle, and instrument counts were correct prior to closing the wounds. We will obtain postoperative films and be admitted to the floor for postoperative pain control, IV antibiotics, and starting of physical therapy.
--- NOTE | 2018-08-02 15:58 | ANES ---
Anesthesia Procedure Note Procedure Note: ANESTHESIA PROCEDURE NOTE Date of Procedure: 08/02/2018. Time of procedure: 1250. Performed by: Connor Leo CRNA Clothing Worker: None. Preprocedure diagnosis: Left humerus fracture. Post procedure diagnosis: Same. Procedure: Left ultrasound guided interscalene nerve block for postoperative analgesia. Indications: The patient is a 58-year-old female, requesting left ultrasound- guided interscalene nerve block for postoperative analgesia related to left reverse total shoulder arthroplasty. Findings: See below. Details of the procedure: The tissue over the intended target site was cleansed with ChloraPrep. 1 ml Lidocaine 1 % was infiltrated to the skin and subcutaneous tissue. Under sterile technique and ultrasound guidance a 22-gauge block needle was inserted to the left brachial plexus nerve bundle between the anterior scalene and the middle scalene muscles. 30 mL's of 0.5% bupivacaine plus epinephrine 1:200,000 was injected after negative aspiration for blood. Needle tip and spread of local anesthetic around the brachial plexus was observed throughout the injection with realtime ultrasound visualization. The needle was removed intact. No complications were noted. The images were retained in the hospital medical database . EBL: Minimal. Fluids: N/A. Specimen: N/A. Post procedure condition: The patient tolerated the procedure well. No complications were noted. Thank you for this consultation. Connor Leo CRNA
--- NOTE | 2018-08-02 16:05 | ANES ---
Post Anesthesia Assessment - Vital Signs Vitals: Last Vital Signs Temp 36.4 C 08/02/18 15:40 Pulse 87 08/02/18 16:00 Resp 16 08/02/18 16:00 BP 150/68 H 08/02/18 16:00 Pulse Ox 97 08/02/18 16:00 Airway Patency: Normal - Mental Status Level Of Consciousness: Drowsy - Pain Level Pain Score: 0 - N/V Assessment Nausea/Vomiting Presence: None Dehydration:: No
[2018-08-02] MEDS: HYDROmorphone HCL 2 MG/ML VIAL IV PRN (16:12)
[2018-08-02] MEDS: ceFAZolin SODIUM 1 GM in DEXTROSE 5 % IN WATER 100 ML IV SCH ×4 (17:42→23:41)
[2018-08-02] MEDS: SENNOSIDES/DOCUSATE SODIUM 1 TAB TABLET PO SCH (20:35)
[2018-08-02] MEDS: MONTELUKAST SODIUM 10 MG TABLET PO SCH (20:36)
[2018-08-02] MEDS: HYDROmorphone HCL 1 MG/ML DISP.SYRIN IV PRN (22:49)
[2018-08-03] MEDS: HYDROmorphone HCL 1 MG/ML DISP.SYRIN IV PRN (04:13)
[2018-08-03] MEDS: ceFAZolin SODIUM 1 GM in DEXTROSE 5 % IN WATER 100 ML IV SCH ×2 (05:05)
[2018-08-03 05:36] LABS: Hematocrit 31.7 % (37.0-47.0); Hemoglobin 9.7 gm/dL (12.5-16.0); Mean Cell Volume 88.1 fl (78-100); Mean Corpuscular Hemoglobin 26.9 pg (27-31); Mean Corpuscular Hgb Conc 30.6 g/dl (32-36); Mean Platelet Volume 11.6 fl (8-12.5); Platelet Count 280 K/mm3 (150-450); Red Cell Distribution Width 14.1 % (11.5-14.0); White Blood Count 13.9 K/mm3 (4.0-10.5)
[2018-08-03 05:37] LABS: Anion Gap 9.5 mmol/L (6.8-13.8); BUN/Creatinine Ratio 21.1 (9.0-21.6); Calcium * 8.7 mg/dL (7.9-10.9); Carbon Dioxide 31.3 mmol/L (24-32.6); Estimated Creat Clear 102.7; Potassium 3.8 mmol/L (3.4-4.6)
[2018-08-03] MEDS: PANTOPRAZOLE SODIUM 20 MG TABLET.DR PO SCH (07:41)
[2018-08-03] MEDS: MAGNESIUM HYDROXIDE 30 ML UDC PO PRN (07:45)
--- NOTE | 2018-08-03 08:14 | PN ---
Subjective - Date and Time Seen Date: 08/03/18 Time: 08:10 Subjective Narrative: Subjective: Reports improved pain and less somnolence. She is bed eating breakfast. Tolerating by mouth intake. Denies any nausea or vomiting. Physical exam: Alert and oriented to person, place and time Bilateral upper Extremity: Palpable radial pulse. Sensation grossly intact to light touch. Dressings clean and dry. In slings bilaterally. She is able to move her fingers and wrist and has mild pain with any shoulder range of motion Assessment: Postop day 1 status post reverse total shoulder arthroplasty left shoulder, postop day 5 open reduction internal fixation of right proximal humerus fracture Plan: She will be nonweightbearing bilateral upper extremities at this time. She can do gentle range of motion of her shoulders. She can do active assisted range of motion on the left and limited active internal and external rotation. No active range of motion right. Continue with pain control, encourage incentive spirometry, encourage mobility as tolerated. 24 hours with IV antibiotics. Lovenox for DVT prophylaxis. Objective - Vitals Vitals: Last Vital Signs Temp 36.9 C 08/03/18 06:00 Pulse 87 08/03/18 06:00 Resp 20 08/03/18 06:00 BP 159/78 H 08/03/18 06:00 Pulse Ox 96 08/03/18 06:00 - Abnormal Lab Findings Abnormal Lab Findings: Abnormal Lab Results 08/01/18 08/02/18 08/02/18 Range/Units 11:55 08:22 08:22 WBC 11.8 H (4.0-10.5) K/mm3 RBC 3.44 L (4.2-5.4) M/mm3 Hgb 9.3 L (12.5-16.0) gm/dL Hct 30.0 L (37.0-47.0) % MCH (27-31) pg MCHC 31.0 L (32-36) g/dl RDW (11.5-14.0) % Immature Gran % (Auto) 3.00 H (0.001-0.429) % Immature Gran # (Auto) 0.35 H (0.000-0.0310) K/mm3 Monocytes % 9.3 H (0.0-9) % Eosinophils % 5.3 H (0.0-3.0) % Neutrophils # 7.0 H (1.3-6.0) K/mm3 Monocytes # 1.1 H (0.0-1.0) k/mm3 Carbon Dioxide 33.3 H (24-32.6) mmol/L Random Glucose 146 H D (70-110) mg/dL Crossmatch See Detail 08/03/18 08/03/18 Range/Units 05:10 05:10 WBC 13.9 H (4.0-10.5) K/mm3 RBC 3.60 L (4.2-5.4) M/mm3 Hgb 9.7 L (12.5-16.0) gm/dL Hct 31.7 L (37.0-47.0) % MCH 26.9 L (27-31) pg MCHC 30.6 L (32-36) g/dl RDW 14.1 H (11.5-14.0) % Immature Gran % (Auto) (0.001-0.429) % Immature Gran # (Auto) (0.000-0.0310) K/mm3 Monocytes % (0.0-9) % Eosinophils % (0.0-3.0) % Neutrophils # (1.3-6.0) K/mm3 Monocytes # (0.0-1.0) k/mm3 Carbon Dioxide (24-32.6) mmol/L Random Glucose 133 H (70-110) mg/dL Crossmatch Assessment/Plan - Problems/Diagnosis (1) Proximal humerus fracture Problem: Acute Qualifiers: Encounter type: subsequent encounter Fracture type: closed Fracture morphology: other fracture Fracture alignment: displaced Laterality: left (2) Fracture dislocation of right shoulder joint Problem: Acute Qualifiers: Encounter type: subsequent encounter Fracture type: closed Fracture healing: with routine healing Qualified Code(s): S42.91XD - Fracture of right shoulder girdle, part unspecified, subsequent encounter for fracture with routine healing (3) S/p reverse total shoulder arthroplasty Problem: Acute Qualifiers: Laterality: left Qualified Code(s): Z96.612 - Presence of left artificial shoulder joint
[2018-08-03] MEDS ORDERED: INSULIN LISPRO 100 UNITS/ML VIAL SC ONE (08:45)
[2018-08-03] MEDS: INSULIN LISPRO 100 UNITS/ML VIAL SC SCH ×3 (08:46→18:00)
[2018-08-03] MEDS ORDERED: MAGNESIUM CITRATE 300 ML BTL PO ONE (09:22)
--- NOTE | 2018-08-03 09:22 | PN ---
Subjective - Date and Time Seen Date: 08/03/18 Time: 08:40 Subjective Narrative: Lori is sitting up in her chair this morning and is very alert and conversant. She complaining of her left shoulder hurting a lot because it is not adequately propped up. Had nursing adjust her pill-rolling to help relieve her pain. She states her appetite is good. She has not had a BM since admission. She's had no fever. She had a left total shoulder arthroplasty done yesterday and seems to be recovering well. Her blood sugar this morning is 133 and so I reduced her morning meal time insulin to 15 units. Her hemoglobin is actually come up to 9.7 g this morning. The rest of her lab is unremarkable. Objective - Review of Systems Generalized/Overall Review: Reports: No Symptoms Reported EENTM: Reports: No Symptoms Reported Respiratory: Reports: No Symptoms Reported Cardiac: Reports: No Symptoms Reported Abdominal: Reports: Constipation Genitourinary Symptoms: Reports: No Symptoms Reported Musculoskeletal Complaints: Reports: Joint Pain Neurological: Reports: No Symptoms Reported Skin: Reports: No Symptoms Reported Endocrine: Reports: No Symptoms Reported - Bilateral shoulders - Vitals Vitals: Last Vital Signs Temp 36.9 C 08/03/18 06:00 Pulse 87 08/03/18 06:00 Resp 20 08/03/18 06:00 BP 159/78 H 08/03/18 06:00 Pulse Ox 96 08/03/18 06:00 - Abnormal Lab Findings Abnormal Lab Findings: Abnormal Lab Results 08/01/18 08/03/18 08/03/18 Range/Units 11:55 05:10 05:10 WBC 13.9 H (4.0-10.5) K/mm3 RBC 3.60 L (4.2-5.4) M/mm3 Hgb 9.7 L (12.5-16.0) gm/dL Hct 31.7 L (37.0-47.0) % MCH 26.9 L (27-31) pg MCHC 30.6 L (32-36) g/dl RDW 14.1 H (11.5-14.0) % Random Glucose 133 H (70-110) mg/dL Crossmatch See Detail - Exam Constitutional: Present: Alert, Oriented x3, Cooperative, Well developed, Well nourished, No distress ENT Exam: Present: normal ENT inspection, hearing grossly normal, pharynx normal Neck: Present: non-tender, full range of motion, supple, normal inspection, trachea midline Breasts: Present: Exam deferred Respiratory: Present: chest non-tender, lungs clear, normal breath sounds, no respiratory distress, no accessory muscle use Cardiovascular/Chest: Present: normal peripheral pulses, regular rate, rhythm, no chest tenderness, no edema, no gallop, no JVD, no murmur, no rub Abdomen: Present: Normal bowel sounds, soft, nontender, nondistended, no rebound tenderness, no hepatospenomegaly, no masses, obese /Rectal: Present: Exam deferred Extremity: Present: normal range of motion - Lower extremities. 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 Mag citrate one bottle today. 2. Start Senokot-S 2 by mouth twice a day 3. PT to assess mobility today. 4. Inpatient rehabilitation is being considered in a facility is being looked into at this time. - Problems/Diagnosis (1) Fracture dislocation of right shoulder joint Problem: Acute Qualifiers: Encounter type: subsequent encounter Fracture type: closed Fracture healing: with routine healing Qualified Code(s): S42.91XD - Fracture of right shoulder girdle, part unspecified, subsequent encounter for fracture with routine healing (2) Fracture of humeral head, left, closed Problem: Acute Qualifiers: Encounter type: initial encounter Qualified Code(s): S42.292A - Other displaced fracture of upper end of left humerus, initial encounter for closed fracture (3) Type II diabetes mellitus Problem: Chronic Qualifiers: Diabetes 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: with termite renewal inspector use Diabetes mellitus complication status: without complication Qualified Code(s): E11.9 - Type 2 diabetes mellitus without complications; Z79.4 - moth exterminator (current) use of insulin (4) Hypertension Problem: Chronic Qualifiers: Hypertension type: essential hypertension Qualified Code(s): I10 - Essential (primary) hypertension (5) Fall Problem: Acute (6) Tongue biting Problem: Acute (7) Anemia Problem: Acute Qualifiers: Anemia type: unspecified type Qualified Code(s): D64.9 - Anemia, unspecified (8) Hypokalemia Problem: Resolved (9) Constipation due to opioid therapy Problem: Acute
[2018-08-03] MEDS: INSULIN DETEMIR 100 UNITS/ML VIAL SC SCH ×2 (09:23→21:13)
[2018-08-03] MEDS: VENLAFAXINE HCL 75 MG TABLET PO SCH ×3 (09:26→16:14)
[2018-08-03] MEDS: TOPIRAMATE 50 MG TABLET PO SCH ×2 (09:26→21:23)
[2018-08-03] MEDS: GABAPENTIN 300 MG CAPSULE PO SCH ×4 (09:26→21:21)
[2018-08-03] MEDS: POTASSIUM CHLORIDE 20 MEQ TABLET.SA PO SCH ×3 (09:26→16:14)
[2018-08-03] MEDS: HYDROCHLOROTHIAZIDE 12.5 MG CAPSULE PO SCH (09:27)
[2018-08-03] MEDS: METOPROLOL TARTRATE 25 MG TABLET PO SCH ×2 (09:27→21:20)
[2018-08-03] MEDS: TIOTROPIUM BROMIDE 5 CAP INHALER IH SCH (09:28)
[2018-08-03] MEDS: FLUTICASONE/SALMETEROL 14 PUFF DISK.W.DEV IH SCH (09:28)
[2018-08-03] MEDS: NYSTATIN 15 APPL BTL TP SCH ×2 (09:32→21:21)
[2018-08-03] MEDS: oxyCODONE HCL/ACETAMINOPHEN 1 TAB TABLET PO PRN (11:04)
[2018-08-03] MEDS: ENOXAPARIN SODIUM 40 MG/0.4 ML SYRG SC SCH (16:14)
[2018-08-03] MEDS ORDERED: SENNOSIDES/DOCUSATE SODIUM 1 TAB TABLET PO SCH (21:00)
[2018-08-03] MEDS: SENNOSIDES/DOCUSATE SODIUM 1 TAB TABLET PO SCH (21:22)
[2018-08-03] MEDS: MONTELUKAST SODIUM 10 MG TABLET PO SCH (21:23)
[2018-08-03] MEDS: ACETAMINOPHEN 500 MG TABLET PO PRN (23:00)
[2018-08-04] MEDS: RINGER'S SOLUTION,LACTATED 1,000 ML IV PRN
[2018-08-04] MEDS: oxyCODONE HCL/ACETAMINOPHEN 1 TAB TABLET PO PRN ×4 (00:05→13:27)
[2018-08-04] MEDS: PANTOPRAZOLE SODIUM 20 MG TABLET.DR PO SCH (07:02)
[2018-08-04] MEDS: INSULIN LISPRO 100 UNITS/ML VIAL SC SCH ×3 (07:30→17:01)
--- NOTE | 2018-08-04 08:47 | PN ---
Subjective - Date and Time Seen Date: 08/04/18 Time: 08:15 Subjective Narrative: Lori had a restful night and slept well. She is eating breakfast well this morning. Her only complaint is that her shoulders aren't being propped up adequately and when they are being pulled down by gravity and it causes markedly increased pain in the shoulders. I've asked physical therapy to work at her slings to see if they are the right size and are properly placed. Physical t herapy will be evaluating her today. Apparently they couldn't yesterday because of hypertension and pain. Blood pressure this morning is in the 140s systolic. Case management is still working on placement to inpatient rehabilitation facility preferably [facility] in [place], [place]. Continue her current therapy for now. Objective - Review of Systems Generalized/Overall Review: Reports: No Symptoms Reported EENTM: Reports: No Symptoms Reported Respiratory: Reports: No Symptoms Reported Cardiac: Reports: No Symptoms Reported, Other - Hypertensive episodes yesterday Abdominal: Reports: No Symptoms Reported, Constipation - She has had 4 bowel movements starting laxatives yesterday. Genitourinary Symptoms: Reports: No Symptoms Reported Musculoskeletal Complaints: Reports: Joint Pain - Both shoulders Neurological: Reports: No Symptoms Reported Skin: Reports: No Symptoms Reported Endocrine: Reports: No Symptoms Reported - Vitals Vitals: Last Vital Signs Temp 36.8 C 08/04/18 07:51 Pulse 62 08/04/18 07:51 Resp 12 08/04/18 07:51 BP 144/61 H 08/04/18 07:51 Pulse Ox 99 08/04/18 07:51 - Abnormal Lab Findings Abnormal Lab Findings: Abnormal Lab Results 08/01/18 Range/Units 11:55 Crossmatch See Detail - Exam Constitutional: Present: Alert, Oriented x3, Cooperative, Well developed, Well nourished, Mild distress ENT Exam: Present: normal ENT inspection, hearing grossly normal, pharynx normal, TMs normal Neck: Present: non-tender, full range of motion, supple, normal inspection, trachea midline Breasts: Present: Exam deferred Respiratory: Present: chest non-tender, lungs clear, normal breath sounds Cardiovascular/Chest: Present: normal peripheral pulses, regular rate, rhythm, no chest tenderness, no edema, no gallop, no JVD, no murmur, no rub Abdomen: Present: Normal bowel sounds, soft, nontender, nondistended, no rebound tenderness, no hepatospenomegaly, no masses, obese /Rectal: Present: Exam deferred Extremity: Present: normal range of motion - Lower extremities. She really doesn't have any range of motion of the upper extremities because of severe pain., no pedal edema, no calf tenderness, normal capillary refill Skin Exam: Present: normal color, warm/dry, no cyanosis Lymphatic: Present: no adenopathy Neurologic: Present: parquet floor layer II-XII nml as tested, normal cerebellar test, no motor/sensory deficits, alert, normal mood/affect, oriented x 3 Appearance: Present: appropriate appearance, appropriate insight, neat, no memory impairment Eye contact: Present: cooperative, good eye contact, normal speech, avoids eye contact Thoughts: Present: normal thought pattern, no apparent hallucination Assessment/Plan Plan Narrative: Discharge planning is in progress. Decrease Senokot-S to 2 by mouth once daily PT to evaluate mobility today and evaluate arm slings for appropriate size and fittiing. - Problems/Diagnosis (1) Fracture dislocation of right shoulder joint Problem: Acute Qualifiers: Encounter type: subsequent encounter Fracture type: closed Fracture healing: with routine healing Qualified Code(s): S42.91XD - Fracture of right shoulder girdle, part unspecified, subsequent encounter for fracture with routine healing (2) Fracture of humeral head, left, closed Problem: Acute Qualifiers: Encounter type: initial encounter Qualified Code(s): S42.292A - Other displaced fracture of upper end of left humerus, initial encounter for closed fracture (3) Type II diabetes mellitus Problem: Chronic Qualifiers: Diabetes mellitus exterminator insulin use: with exterminator use Diabetes mellitus complication status: without complication Qualified Code(s): E11.9 - Type 2 diabetes mellitus without complications; Z79.4 - long term care social worker (current) use of insulin (4) Hypertension Problem: Chronic Qualifiers: Hypertension type: essential hypertension Qualified Code(s): I10 - Essential (primary) hypertension (5) Fall Problem: Acute (6) Tongue biting Problem: Acute (7) Anemia Problem: Acute Qualifiers: Anemia type: unspecified type Qualified Code(s): D64.9 - Anemia, unspecified (8) Hypokalemia Problem: Resolved (9) Constipation due to opioid therapy Problem: Resolved
[2018-08-04] MEDS: FLUTICASONE/SALMETEROL 14 PUFF DISK.W.DEV IH SCH (09:52)
[2018-08-04] MEDS: VENLAFAXINE HCL 75 MG TABLET PO SCH ×3 (09:54→17:31)
[2018-08-04] MEDS: POTASSIUM CHLORIDE 20 MEQ TABLET.SA PO SCH ×3 (09:56→17:31)
[2018-08-04] MEDS: INSULIN DETEMIR 100 UNITS/ML VIAL SC SCH ×2 (09:58→21:38)
[2018-08-04] MEDS: METOPROLOL TARTRATE 25 MG TABLET PO SCH ×2 (10:02→21:36)
[2018-08-04] MEDS: HYDROCHLOROTHIAZIDE 12.5 MG CAPSULE PO SCH (10:04)
[2018-08-04] MEDS: NYSTATIN 15 APPL BTL TP SCH ×2 (10:04→21:36)
[2018-08-04] MEDS: GABAPENTIN 300 MG CAPSULE PO SCH ×4 (10:05→21:37)
[2018-08-04] MEDS: TIOTROPIUM BROMIDE 5 CAP INHALER IH SCH (10:06)
[2018-08-04] MEDS: TOPIRAMATE 50 MG TABLET PO SCH ×2 (10:07→21:38)
--- NOTE | 2018-08-04 11:41 | PN ---
Subjective - Date and Time Seen Date: 08/04/18 Time: 11:38 Subjective Narrative: Patient reports she is able walk with therapy. Reports pain controlled at this point time. Reports no nausea at this time. Patient's inquiring about where she is going to go for further rehabilitation. No other complaints. Objective Objective Narrative: Bilateral upper extremities in slings. Bandages are clean dry and intact. Patient is able to move the digits and wrist freely in both hands without pain. Patient's resting comfortably in a chair alert and oriented. - Vitals Vitals: Last Vital Signs Temp 36.7 C 08/04/18 11:16 Pulse 72 08/04/18 11:16 Resp 12 08/04/18 11:16 BP 152/81 H 08/04/18 11:16 Pulse Ox 100 08/04/18 11:16 - Exam Constitutional: Present: Alert, Oriented x3, Cooperative, No distress Assessment/Plan - Problems/Diagnosis (1) S/P ORIF (open reduction internal fixation) fracture Problem: Acute (2) Fall Problem: Acute (3) Fracture dislocation of right shoulder joint Problem: Acute Qualifiers: Encounter type: subsequent encounter Fracture type: closed Fracture healing: with routine healing Qualified Code(s): S42.91XD - Fracture of right shoulder girdle, part unspecified, subsequent encounter for fracture with routine healing (4) Fracture of humeral head, left, closed Problem: Acute Qualifiers: Encounter type: initial encounter Qualified Code(s): S42.292A - Other displaced fracture of upper end of left humerus, initial encounter for closed fracture (5) Hypertension Problem: Chronic Qualifiers: Hypertension type: essential hypertension Qualified Code(s): I10 - Essential (primary) hypertension (6) Anemia Problem: Acute Qualifiers: Anemia type: unspecified type Qualified Code(s): D64.9 - Anemia, unspecified (7) S/p reverse total shoulder arthroplasty Problem: Acute Qualifiers: Laterality: left Qualified Code(s): Z96.612 - Presence of left artificial shoulder joint Narrative: Physical therapy for passive motion of shoulders. Nonweightbearing on shoulders with ambulation. Keep bandage is clean and dry and intact. Pain control.
[2018-08-04] MEDS: ENOXAPARIN SODIUM 40 MG/0.4 ML SYRG SC SCH (14:38)
[2018-08-04] MEDS ORDERED: INSULIN LISPRO 100 UNITS/ML VIAL SC ONE (17:00)
[2018-08-04] MEDS: SENNOSIDES/DOCUSATE SODIUM 1 TAB TABLET PO SCH (21:37)
[2018-08-04] MEDS: MONTELUKAST SODIUM 10 MG TABLET PO SCH (21:37)
[2018-08-05] MEDS: oxyCODONE HCL/ACETAMINOPHEN 1 TAB TABLET PO PRN ×6 (00:11→22:16)
[2018-08-05] MEDS: PANTOPRAZOLE SODIUM 20 MG TABLET.DR PO SCH (07:13)
[2018-08-05] MEDS: INSULIN LISPRO 100 UNITS/ML VIAL SC SCH ×3 (07:18→17:26)
--- NOTE | 2018-08-05 08:04 | PN ---
Subjective - Date and Time Seen Date: 08/05/18 Time: 08:02 Subjective Narrative: Patient reports doing okay. Pain controlled. No nausea. Is hoping to get down to [facility] in [place] soon near home. No complaints Objective Objective Narrative: In chair. Bandages C/D/I. N/V intact bilateral upper extremities. - Vitals Vitals: Last Vital Signs Temp 36.8 C 08/05/18 06:20 Pulse 84 08/05/18 06:20 Resp 16 08/05/18 06:20 BP 173/94 H 08/05/18 06:20 Pulse Ox 100 08/05/18 06:20 - Abnormal Lab Findings Abnormal Lab Findings: Abnormal Lab Results 08/01/18 Range/Units 11:55 Crossmatch See Detail - Exam Constitutional: Present: Alert, Oriented x3, Cooperative, No distress Assessment/Plan - Problems/Diagnosis (1) S/P ORIF (open reduction internal fixation) fracture Problem: Acute (2) Fall Problem: Acute (3) Fracture dislocation of right shoulder joint Problem: Acute Qualifiers: Encounter type: subsequent encounter Fracture type: closed Fracture healing: with routine healing Qualified Code(s): S42.91XD - Fracture of right shoulder girdle, part unspecified, subsequent encounter for fracture with routine healing (4) Fracture of humeral head, left, closed Problem: Acute Qualifiers: Encounter type: initial encounter Qualified Code(s): S42.292A - Other displaced fracture of upper end of left humerus, initial encounter for closed fracture (5) Hypertension Problem: Chronic Qualifiers: Hypertension type: essential hypertension Qualified Code(s): I10 - Essential (primary) hypertension (6) Anemia Problem: Acute Qualifiers: Anemia type: unspecified type Qualified Code(s): D64.9 - Anemia, unspecified (7) S/p reverse total shoulder arthroplasty Problem: Acute Qualifiers: Laterality: left Qualified Code(s): Z96.612 - Presence of left artificial shoulder joint Narrative: Social workers working on rehab placement. Continue PT.
[2018-08-05 09:09] LABS: Hematocrit 29.2 % (37.0-47.0); Hemoglobin 9.4 gm/dL (12.5-16.0); Mean Cell Volume 84.4 fl (78-100); Mean Corpuscular Hemoglobin 27.2 pg (27-31); Mean Corpuscular Hgb Conc 32.2 g/dl (32-36); Mean Platelet Volume 11.6 fl (8-12.5); Neutrophil # 6.9 K/mm3 (1.3-6.0); Neutrophil % 61.4 % (42-75.0); Platelet Count 224 K/mm3 (150-450); Red Blood Count 3.46 M/mm3 (4.2-5.4); Red Cell Distribution Width 14.3 % (11.5-14.0); White Blood Count 11.3 K/mm3 (4.0-10.5)
[2018-08-05] MEDS: FLUTICASONE/SALMETEROL 14 PUFF DISK.W.DEV IH SCH (09:31)
[2018-08-05] MEDS: VENLAFAXINE HCL 75 MG TABLET PO SCH ×3 (09:33→17:24)
[2018-08-05] MEDS: POTASSIUM CHLORIDE 20 MEQ TABLET.SA PO SCH ×3 (09:35→17:24)
[2018-08-05] MEDS: INSULIN DETEMIR 100 UNITS/ML VIAL SC SCH ×2 (09:39→20:22)
[2018-08-05] MEDS: METOPROLOL TARTRATE 25 MG TABLET PO SCH ×2 (09:44→20:23)
[2018-08-05] MEDS: NYSTATIN 15 APPL BTL TP SCH ×2 (09:46→20:54)
[2018-08-05] MEDS: HYDROCHLOROTHIAZIDE 12.5 MG CAPSULE PO SCH (09:46)
[2018-08-05] MEDS: GABAPENTIN 300 MG CAPSULE PO SCH ×4 (09:47→20:36)
[2018-08-05] MEDS: TIOTROPIUM BROMIDE 5 CAP INHALER IH SCH (09:48)
[2018-08-05] MEDS: TOPIRAMATE 50 MG TABLET PO SCH ×2 (09:51→20:38)
[2018-08-05 10:05] LABS: BUN/Creatinine Ratio 13.9 (9.0-21.6); Calcium * 8.6 mg/dL (7.9-10.9); Carbon Dioxide 28.3 mmol/L (24-32.6); Estimated Creat Clear 81.3; Potassium 4.3 mmol/L (3.4-4.6)
[2018-08-05] MEDS: ENOXAPARIN SODIUM 40 MG/0.4 ML SYRG SC SCH (14:13)
--- NOTE | 2018-08-05 18:00 | DS ---
(1) Fracture dislocation of right shoulder joint Problem: Acute Qualifiers: Encounter type: subsequent encounter Fracture type: closed Fracture healing: with routine healing Qualified Code(s): S42.91XD - Fracture of right shoulder girdle, part unspecified, subsequent encounter for fracture with routine healing (2) Fracture of humeral head, left, closed Problem: Acute Qualifiers: Encounter type: initial encounter Qualified Code(s): S42.292A - Other displaced fracture of upper end of left humerus, initial encounter for closed fracture (3) Type II diabetes mellitus Problem: Chronic Qualifiers: Diabetes mellitus correction insulin use: with correction use Diabetes mellitus complication status: without complication Qualified Code(s): E11.9 - Type 2 diabetes mellitus without complications; Z79.4 - operator cavity pump (current) use of insulin (4) Hypertension Problem: Chronic Qualifiers: Hypertension type: essential hypertension Qualified Code(s): I10 - Essential (primary) hypertension (5) Fall Problem: Acute (6) Tongue biting Problem: Acute (7) Anemia Problem: Acute Qualifiers: Anemia type: unspecified type Qualified Code(s): D64.9 - Anemia, unspecified (8) Hypokalemia Problem: Resolved (9) Constipation due to opioid therapy Problem: Resolved Description of Stay: Lori Torrez is a 58 yo. wh female that was injured at her work. She was pushing a cart that he had a load on it. She was pushing on to an elevator when the front wheels stopped at the elevator tracking in the load slid forward causing her to fall face forward onto the cart. She sustained a fracture of the right humerus and in the left glenoid. The ball of the left shoulder joint was completely from surrounding tissue and devascularized requiring a total left shoulder arthroplasty. The right humerus was repaired with ORIF and plating and screws. She can use either arm for any function at this time and is unable to use her arms to help stand up. She is getting passive range of motion physical therapy of the hand and forearm with the shoulders are basically immobile at this point. She has had 3 surgeries since admission. One on the right arm and 2 on the left shoulder. Her orthopedist is Dr. Aureliano Adame who is managed her surgical needs and I have managed her medical needs. She is also a longtime poorly controlled insulin-dependent diabetic, has essential hypertension, and has developed anemia from her injuries and surgeries. She developed some hypokalemia that was corrected with K riders 4 and oral potassium. She is now in mid therapeutic range. She developed opioid-induced constipation which resolved with magnesium site rate and Senokot S. There've been no signs of infection regarding her surgeries. We have been able to get her up in a chair each day and I think that his help prevent pneumonias. The should continue to get her up in a chair for all meals at the correction. She is still having a lot of pain and requires both shoulders be propped up on pillows or extra blankets because the shoulders are LAD and to a dependent position they're very painful. The right is worse than the left. Arrangements have been made for her to go to a custodial facility and [place]. Procedures Performed: see notes below - ORIF R. Humerus fracture, L. TSA Results and Findings: Lab Pending Results 07/28/18 12:10: WBC 16.6 H, RBC 5.18, Hgb 14.1, Hct 43.4, MCV 83.8, MCH 27.2, MCHC 32.5, RDW 13.3, Plt Count 207, MPV 11.9, Immature Gran % (Auto) 1.00 H, Immature Gran # (Auto) 0.17 H, Neutrophils % 86.4 H, Lymphocytes % 7.3 L, Monocytes % 4.6, Eosinophils % 0.2, Basophils % 0.5, Nucleated RBC % 0.0, Neutrophils # 14.3 H, Lymphocytes # 1.21 L, Monocytes # 0.8, Eosinophils # 0.0, Absolute Basophils 0.1 07/28/18 12:10: Sodium 136, Plasma Sodium 142, Potassium 4.0, Chloride 101, Carbon Dioxide 24.7, Anion Gap 14.3 H, BUN 17, Creatinine 0.83, Est GFR (Non-Af Amer) 75, BUN/Creatinine Ratio 20.5, Random Glucose 460 H, Calcium 8.6, Calcium Adj for Albumin 8.8, Total Bilirubin 0.5, AST 52 H, ALT 49, Alkaline Phosphatase 183 H, Total Protein 6.8, Albumin 3.4 07/28/18 12:10: Mean Blood Glucose 297, Hemoglobin A1c 11.5 H 07/28/18 12:10: C-Peptide 2.82 07/28/18 12:29: Urine Color Pale yellow, Urine Appearance Slightly cloudy, Urine pH 6.0, Ur Specific [place] 1.015, Urine Protein Negative, Urine Glucose (UA) >=1000 H, Urine Ketones 5, Urine Blood 5 H, Urine Nitrate Negative, Urine Bilirubin Negative, Urine Urobilinogen Normal, Ur Leukocyte Esterase Negative, Urine RBC None seen, Urine WBC None seen, Ur Epithelial Cells 0-5, Urine Bacteria 1+ H, Hyaline Casts Trace, Urine Culture Comments No culture indicated 07/29/18 05:37: WBC 13.1 H D, RBC 4.86, Hgb 13.1, Hct 41.6, MCV 85.6, MCH 27.0, MCHC 31.5 L, RDW 13.4, Plt Count 243, MPV 12.4, Immature Gran % (Auto) 1.70 H, Immature Gran # (Auto) 0.22 H, Neutrophils % 66.1, Lymphocytes % 20.9, Monocytes % 8.7, Eosinophils % 1.8, Basophils % 0.8, Nucleated RBC % 0.0, Neutrophils # 8.7 H, Lymphocytes # 2.73, Monocytes # 1.1 H, Eosinophils # 0.2, Absolute Basophils 0.1 07/29/18 05:37: Sodium 140, Plasma Sodium 141, Potassium 3.5, Chloride 104, Carbon Dioxide 28.5, Anion Gap 11.0, BUN 18, Creatinine 0.79, Est GFR (Non-Af Amer) 79, BUN/Creatinine Ratio 22.8 H, Random Glucose 149 H D, Calcium 9.0, Calcium Adj for Albumin 9.3, Total Bilirubin 0.5, AST 35, ALT 49, Alkaline Phosphatase 174 H, Total Protein 6.7, Albumin 3.2 L 07/30/18 05:29: WBC 15.7 H, RBC 4.11 L, Hgb 11.1 L, Hct 36.4 L, MCV 88.6, MCH 27.0, MCHC 30.5 L, RDW 13.8, Plt Count 211, MPV 12.1 07/30/18 05:29: Sodium 139, Plasma Sodium 139, Potassium 4.3 D, Chloride 105, Carbon Dioxide 31.6, Anion Gap 6.7 L, BUN 15, Creatinine 0.72, Est GFR (Non-Af Amer) 88, BUN/Creatinine Ratio 20.8, Random Glucose 104 D, Calcium 8.4 07/31/18 05:30: WBC 14.6 H, RBC 3.74 L, Hgb 10.1 L, Hct 32.7 L, MCV 87.4, MCH 27.0, MCHC 30.9 L, RDW 13.9, Plt Count 225, MPV 12.5 07/31/18 05:30: Sodium 140, Plasma Sodium 143 H, Potassium 3.2 L D, Chloride 100, Carbon Dioxide 30.9, Anion Gap 12.3, BUN 15, Creatinine 0.85, Est GFR (Non- Af Amer) 73, BUN/Creatinine Ratio 17.6, Random Glucose 297 H D, Calcium 7.8 L 08/01/18 05:50: WBC 12.9 H, RBC 3.47 L, Hgb 9.3 L, Hct 29.9 L, MCV 86.2, MCH 26.8 L, MCHC 31.1 L, RDW 13.9, Plt Count 180, MPV 12.0, Immature Gran % (Auto) 1.90 H, Immature Gran # (Auto) 0.25 H, Neutrophils % 72.4, Lymphocytes % 13.9 L, Monocytes % 10.2 H, Eosinophils % 1.2, Basophils % 0.4, Nucleated RBC % 0.0, Neutrophils # 9.3 H, Lymphocytes # 1.79, Monocytes # 1.3 H, Eosinophils # 0.2, Absolute Basophils 0.1 08/01/18 05:50: Sodium 135, Plasma Sodium 138, Potassium 2.9 L, Chloride 97, Carbon Dioxide 30.9, Anion Gap 10.0, BUN 10, Creatinine 0.70, Est GFR (Non-Af Amer) 91 D, BUN/Creatinine Ratio 14.3, Random Glucose 271 H, Calcium 8.3 08/01/18 11:55: Blood Type O Positive, Antibody Screen Negative, Crossmatch See Detail 08/01/18 19:45: B-Natriuretic Peptide 592 H 08/01/18 20:27: Sodium 138, Plasma Sodium 141, Potassium 4.2 D, Chloride 101, Carbon Dioxide 30.2, Anion Gap 11.0, BUN 13, Creatinine 0.70, Est GFR (Non-Af Amer) 91, BUN/Creatinine Ratio 18.6, Random Glucose 269 H, Calcium 8.5 11/12/18 08:22: WBC 11.8 H, RBC 3.44 L, Hgb 9.3 L, Hct 30.0 L, MCV 87.2, MCH 27.0, MCHC 31.0 L, RDW 14.0, Plt Count 230, MPV 11.8, Immature Gran % (Auto) 3.00 H, Immature Gran # (Auto) 0.35 H, Neutrophils % 59.0, Lymphocytes % 22.6, Monocytes % 9.3 H, Eosinophils % 5.3 H, Basophils % 0.8, Nucleated RBC % 0.0, Neutrophils # 7.0 H, Lymphocytes # 2.66, Monocytes # 1.1 H, Eosinophils # 0.6, Absolute Basophils 0.1 08/02/18 08:22: Sodium 141, Plasma Sodium 142, Potassium 3.4, Chloride 103, Carbon Dioxide 33.3 H, Anion Gap 8.1, BUN 11, Creatinine 0.71, Est GFR (Non-Af Amer) 90, BUN/Creatinine Ratio 15.5, Random Glucose 146 H D, Calcium 7.9 08/03/18 05:10: WBC 13.9 H, RBC 3.60 L, Hgb 9.7 L, Hct 31.7 L, MCV 88.1, MCH 26.9 L, MCHC 30.6 L, RDW 14.1 H, Plt Count 280, MPV 11.6 08/03/18 05:10: Sodium 139, Plasma Sodium 140, Potassium 3.8, Chloride 102, Carbon Dioxide 31.3, Anion Gap 9.5, BUN 12, Creatinine 0.57, Est GFR (Non-Af Amer) 116 D, BUN/Creatinine Ratio 21.1, Random Glucose 133 H, Calcium 8.7 08/05/18 08:15: WBC 11.3 H, RBC 3.46 L, Hgb 9.4 L, Hct 29.2 L, MCV 84.4, MCH 27.2, MCHC 32.2, RDW 14.3 H, Plt Count 224, MPV 11.6, Immature Gran % (Auto) 3.60 H, Immature Gran # (Auto) 0.41 H, Neutrophils % 61.4, Lymphocytes % 21.2, Monocytes % 8.1, Eosinophils % 4.9 H, Basophils % 0.8, Nucleated RBC % 0.0, Neutrophils # 6.9 H, Lymphocytes # 2.39, Monocytes # 0.9, Eosinophils # 0.6, Absolute Basophils 0.1 08/05/18 09:10: Sodium 137, Plasma Sodium 140, Potassium 4.3, Chloride 104, Carbon Dioxide 28.3, Anion Gap 9.0, BUN 10, Creatinine 0.72, Est GFR (Non-Af Amer) 88 D, BUN/Creatinine Ratio 13.9, Random Glucose 258 H D, Calcium 8.6 Discharge Location: [facility] Disposition: SNF Condition: Fair Face to Face Encounter completed per [facility] Guidelines: No Level of Care: SNF Discharge Activity: Activity as tolerated, Non-Weight bearing - with her arms. She can wt. bear with her legs. Discharge Diet: Consistent carbs Group Home Therapy: Physicial Therapy, Occupation Therapy Additional Patient Instructions (free text): F/U with ortho outpatient. She will be nonweightbearing bilateral upper extremities at this time. She can do gentle range of motion of her shoulders. She can do active assisted range of motion on the left and limited active internal and external rotation. No active range of motion to the right. Prescriptions (Any new or edited meds): Fluticasone Propionate 2 sprays NS DAILY #1 bottle Fluticasone/Salmeterol [Advair 250-50 Diskus] 1 puff IH BID #1 inhaler Insulin Detemir [Levemir] 30 units SC BID #1 vial Insulin Lispro [Humalog] 16 units SC ACINS #1 vial Lisinopril [Prinivil] 10 mg PO DAILY #30 tablet Mag Hydrox/Aluminum Hyd/Simeth [Maalox Plus Suspension] 30 ml PO Q6H PRN #1 udc PRN Reason: Indigestion Nystatin [Mycostatin Powder] 1 appl TP BID #1 btl oxyCODONE HCL/ACETAMINOPHEN [Percocet 5 MG/325 MG] 1 tab PO Q4H PRN #120 tab PRN Reason: Moderate Pain (Pain Scale 4-6) Potassium Chloride [K-Dur] 20 meq PO BIDWM #60 tablet.sa Sennosides/Docusate Sodium [Senokot-S] 2 tab PO HS #60 tablet Zolpidem Tartrate [Ambien] 5 mg PO HS PRN #30 tab PRN Reason: Insomnia Complete Home Medications List: Complete Home Medication List: Albuterol Sulfate [Ventolin Hfa] 1 puff IH QID PRN 07/28/18 Atorvastatin Calcium [Lipitor] 80 mg PO DAILY 07/28/18 Ezetimibe [Zetia] 10 mg PO DAILY 07/28/18 Gabapentin [Neurontin] 300 mg PO QID 07/28/18 Hydrochlorothiazide 12.5 mg PO DAILY 07/28/18 Methocarbamol [Robaxin] 1 - 2 tab PO BID PRN 07/28/18 Metoprolol Tartrate [Lopressor] 25 mg PO BID 07/28/18 Montelukast Sodium [Singulair] 10 mg PO HS 07/28/18 Omeprazole 40 mg PO DAILY 07/28/18 Tiotropium [place] [Spiriva] 18 mcg IH DAILY 07/28/18 Topiramate [Topamax] 50 mg PO BID 07/28/18 Venlafaxine HCl [Effexor] 75 mg PO TID 07/28/18 metFORMIN HCL [Glucophage Xr] 500 mg PO QAM 07/28/18 Fluticasone Propionate 2 sprays NS DAILY #1 bottle 08/06/18 Fluticasone/Salmeterol [Advair 250-50 Diskus] 1 puff IH BID #1 inhaler 08/06/18 Fluticasone/Salmeterol [Advair 250-50 Diskus] 1 puff IH DAILY disk.[email or web address] 08/06/18 Insulin Detemir [Levemir] 30 units SC BID #1 vial 08/06/18 Insulin Lispro [Humalog] 16 units SC ACINS #1 vial 08/06/18 Lisinopril [Prinivil] 10 mg PO DAILY #30 tablet 08/06/18 Mag Hydrox/Aluminum Hyd/Simeth [Maalox Plus Suspension] 30 ml PO Q6H PRN #1 udc 08/06/18 Nystatin [Mycostatin Powder] 1 appl TP BID #1 btl 08/06/18 Potassium Chloride [K-Dur] 20 meq PO BIDWM #60 tablet.sa 08/06/18 Sennosides/Docusate Sodium [Senokot-S] 2 tab PO HS #60 tablet 08/06/18 Zolpidem Tartrate [Ambien] 5 mg PO HS PRN #30 tab 08/06/18 oxyCODONE HCL/ACETAMINOPHEN [Percocet 5 MG/325 MG] 1 tab PO Q4H PRN #120 tab 08/06/18 Amb Orders for Discharge: Sleep Study w\ Titration Time Frame: 2 Weeks, Location: Sleep Lab
--- NOTE | 2018-08-05 18:08 | PN ---
Subjective - Date and Time Seen Date: 08/05/18 Time: 08:15 Subjective Narrative: Lori is doing fairly this morning she didn't sleep very well last night because of shoulder pain. She says when she falls asleep her shoulders fall down and then cause pain and awaken her. We are working on arrangements for a rehabilitation facility. First choice was inpatient at [facility] but apparently they have turned down her admission and so she is going to a [facility] in [place] for skilled care. Her vital signs this morning are normal. Skin is warm dry and pink. She has had good response from the laxatives. She is clinically ready for discharge tomorrow. Today's lab: CBC shows hemoglobin of 9.4 g. White count remains mildly elevated at 11,400. The chemistries are normal except blood sugar elevated at 258 this morning. Objective - Review of Systems Generalized/Overall Review: Reports: Weakness, Malaise EENTM: Reports: No Symptoms Reported Respiratory: Reports: No Symptoms Reported Cardiac: Reports: No Symptoms Reported Abdominal: Reports: No Symptoms Reported Genitourinary Symptoms: Reports: No Symptoms Reported Musculoskeletal Complaints: Reports: Joint Pain Neurological: Reports: No Symptoms Reported - Both shoulders Skin: Reports: No Symptoms Reported Endocrine: Reports: No Symptoms Reported, Other - She has erratic blood sugars are difficult to manage - Vitals Vitals: Last Vital Signs Temp 36.8 C 08/05/18 15:39 Pulse 82 08/05/18 15:39 Resp 16 08/05/18 15:39 BP 159/73 H 08/05/18 15:39 Pulse Ox 98 08/05/18 15:39 - Abnormal Lab Findings Abnormal Lab Findings: Abnormal Lab Results 08/01/18 08/05/18 08/05/18 Range/Units 11:55 08:15 09:10 WBC 11.3 H (4.0-10.5) K/mm3 RBC 3.46 L (4.2-5.4) M/mm3 Hgb 9.4 L (12.5-16.0) gm/dL Hct 29.2 L (37.0-47.0) % RDW 14.3 H (11.5-14.0) % Immature Gran % (Auto) 3.60 H (0.001-0.429) % Immature Gran # (Auto) 0.41 H (0.000-0.0310) K/mm3 Eosinophils % 4.9 H (0.0-3.0) % Neutrophils # 6.9 H (1.3-6.0) K/mm3 Random Glucose 258 H D (70-110) mg/dL Crossmatch See Detail - Exam Constitutional: Present: Alert, Oriented x3, Cooperative, Well developed, Well nourished, No distress, Obese ENT Exam: Present: normal ENT inspection, hearing grossly normal, pharynx normal Neck: Present: non-tender, full range of motion Breasts: Present: Exam deferred Respiratory: Present: chest non-tender, lungs clear, normal breath sounds, no respiratory distress Cardiovascular/Chest: Present: normal peripheral pulses, regular rate, rhythm, no chest tenderness, no edema, no gallop, no JVD, no murmur, no rub Abdomen: Present: Normal bowel sounds, soft, nontender, nondistended, no rebound tenderness /Rectal: Present: Exam deferred Extremity: Present: normal range of motion - And lower extremities. She has very limited motion of the shoulders. 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, no motor/sensory deficits, alert, normal mood/affect, oriented x 3 Appearance: Present: appropriate appearance, appropriate insight, neat Eye contact: Present: cooperative, good eye contact, normal speech Thoughts: Present: normal thought pattern Assessment/Plan - Problems/Diagnosis (1) Fracture dislocation of right shoulder joint Problem: Acute Qualifiers: Encounter type: subsequent encounter Fracture type: closed Fracture healing: with routine healing Qualified Code(s): S42.91XD - Fracture of right shoulder girdle, part unspecified, subsequent encounter for fracture with routine healing (2) Fracture of humeral head, left, closed Problem: Acute Qualifiers: Encounter type: initial encounter Qualified Code(s): S42.292A - Other displaced fracture of upper end of left humerus, initial encounter for closed fracture (3) Type II diabetes mellitus Problem: Chronic Qualifiers: Diabetes mellitus joint terminal attack controller insulin use: with fdc use Diabetes mellitus complication status: without complication Qualified Code(s): E11.9 - Type 2 diabetes mellitus without complications; Z79.4 - [facility]CI (current) use of insulin (4) Hypertension Problem: Chronic Qualifiers: Hypertension type: essential hypertension Qualified Code(s): I10 - Essential (primary) hypertension (5) Fall Problem: Acute (6) Tongue biting Problem: Acute (7) Anemia Problem: Acute Qualifiers: Anemia type: unspecified type Qualified Code(s): D64.9 - Anemia, unspecified (8) Hypokalemia Problem: Resolved (9) Constipation due to opioid therapy Problem: Resolved
[2018-08-05] MEDS: MONTELUKAST SODIUM 10 MG TABLET PO SCH (20:37)
[2018-08-05] MEDS: SENNOSIDES/DOCUSATE SODIUM 1 TAB TABLET PO SCH (20:37)
[2018-08-06] MEDS: oxyCODONE HCL/ACETAMINOPHEN 1 TAB TABLET PO PRN ×2 (05:09→08:05)
[2018-08-06] MEDS: INSULIN LISPRO 100 UNITS/ML VIAL SC SCH (06:22)
[2018-08-06] MEDS: PANTOPRAZOLE SODIUM 20 MG TABLET.DR PO SCH (06:23)
[2018-08-06] MEDS: VENLAFAXINE HCL 75 MG TABLET PO SCH (08:06)
[2018-08-06] MEDS: TOPIRAMATE 50 MG TABLET PO SCH (08:06)
[2018-08-06] MEDS: HYDROCHLOROTHIAZIDE 12.5 MG CAPSULE PO SCH (08:06)
[2018-08-06] MEDS: FLUTICASONE/SALMETEROL 14 PUFF DISK.W.DEV IH SCH (08:06)
[2018-08-06] MEDS: POTASSIUM CHLORIDE 20 MEQ TABLET.SA PO SCH (08:06)
[2018-08-06] MEDS: METOPROLOL TARTRATE 25 MG TABLET PO SCH (08:07)
[2018-08-06] MEDS: GABAPENTIN 300 MG CAPSULE PO SCH (08:07)
[2018-08-06] MEDS: NYSTATIN 15 APPL BTL TP SCH (08:07)
[2018-08-06] MEDS: TIOTROPIUM BROMIDE 5 CAP INHALER IH SCH (08:08)
[2018-08-06] MEDS: INSULIN DETEMIR 100 UNITS/ML VIAL SC SCH (08:12)
[2018-08-06 10:33] VITALS: BP 141/64
== END 2018-08-06 10:25 | DRG 483 ==
LOC: ER 11:19 → MS 11:58
PROVIDERS: ADMIT Family Medicine; ATTEND Family Medicine
CPT/HCPCS: 23655; 36415; 71010; 71045; 73020; 73030; 73060; 76000; 80048; 80053; 81001; 83036; 83519; 83880; 84681; 85025; 85027; 86850; 86900; 90686; 93005; 94660; 96374; 96376; 97110; 97116; 97140; 97163; 97164; 97167; 97530; 99285; J2405

== ENCOUNTER 2018-08-31 06:50 | Inpatient (IN) ==
[~2018-08-31 06:50] MED LIST: ceFAZolin SODIUM 1 GM VIAL IV PRN
[2018-08-31] MEDS: RINGER'S SOLUTION,LACTATED 1,000 ML IV PRN ×3 (07:49→11:29)
--- NOTE | 2018-08-31 08:17 | ANES ---
Anesthesia Pre Procedure Eval Vitals/Labs: Last Vital Signs Temp 37 C 08/31/18 06:54 Pulse 91 08/31/18 06:54 Resp 14 08/31/18 06:54 BP 150/92 H 08/31/18 06:54 HOME MEDICATIONS Albuterol Sulfate [Ventolin Hfa] 1 puff INHALATION QID PRN 07/28/18 [Last Taken Unknown] Atorvastatin Calcium [Lipitor] 80 mg PO DAILY 07/28/18 [Last Taken Unknown] Ezetimibe [Zetia] 10 mg PO DAILY 07/28/18 [Last Taken Unknown] Gabapentin [Neurontin] 300 mg PO QID 07/28/18 [Last Taken Unknown] Hydrochlorothiazide 12.5 mg PO DAILY 07/28/18 [Last Taken Unknown] Methocarbamol [Robaxin] 1 - 2 tab PO BID PRN 07/28/18 [Last Taken Unknown] Metoprolol Tartrate [Lopressor] 25 mg PO BID 07/28/18 [Last Taken Unknown] Montelukast Sodium [Singulair] 10 mg PO HS 07/28/18 [Last Taken Unknown] Omeprazole 40 mg PO DAILY 07/28/18 [Last Taken Unknown] Tiotropium [place] [Spiriva] 18 mcg INHALATION DAILY 07/28/18 [Last Taken Unkno wn] Topiramate [Topamax] 50 mg PO BID 07/28/18 [Last Taken Unknown] Venlafaxine HCl [Effexor] 75 mg PO DAILY 07/28/18 [Last Taken Unknown] metFORMIN HCL [Glucophage Xr] 500 mg PO QAM 07/28/18 [Last Taken Unknown] Fluticasone Propionate 2 sprays NS DAILY #1 bottle 08/06/18 [Last Taken Unknown] Fluticasone/Salmeterol [Advair 250-50 Diskus] 1 puff INHALATION DAILY disk.w.dev 08/06/18 [Last Taken Unknown] Insulin Detemir [Levemir] 30 units SC BID #1 vial 08/06/18 [Last Taken Unknown] Insulin Lispro [Humalog] 16 units SC ACINS #1 vial 08/06/18 [Last Taken Unknown] Lisinopril [Prinivil] 10 mg PO DAILY #30 tab 08/06/18 [Last Taken Unknown] Mag Hydrox/Aluminum Hyd/Simeth [Maalox Plus Suspension] 30 ml PO Q6H PRN #1 udc 08/06/18 [Last Taken Unknown] Nystatin [Mycostatin Powder] 1 appl TOPICAL BID #1 btl 08/06/18 [Last Taken Unknown] Potassium Chloride [K-Dur] 20 meq PO BIDWM #60 tablet.sa 08/06/18 [Last Taken Unknown] Sennosides/Docusate Sodium [Senokot-S] 2 tab PO HS #60 tab 08/06/18 [Last Taken Unknown] Zolpidem Tartrate [Ambien] 5 mg PO HS PRN #30 tab 08/06/18 [Last Taken Unknown] Cold Therapy Unit 0 .ROUTE .MEDSUPPLY #1 ea 08/25/18 [Last Taken Unknown] morphine ER 30 mg tablet,extended release 30 mg PO Q12H #30 tab 08/25/18 [Last Taken Unknown] oxycodone-acetaminophen 10 mg-325 mg tablet 1 tab PO Q6H PRN #120 tab 08/25/18 [Last Taken Unknown] Allergies/Adverse Reactions: Allergies Allergy/AdvReac Type Severity Reaction Status Date / Time No Known Allergies Allergy Verified 08/31/18 07:10 - Planned Procedure Planned Procedure: Hardware removal R proximal humerus, R reverse tot Medication List Reviewed:: Yes Allergies Verified: Yes Medical History (Last Reviewed 08/31/18 @ 08:12 by Michael Oseguera CRNA) Asthma Coronary artery disease Diabetes mellitus type 2 in obese Fracture, shoulder Onset Date: ~2017 bilateral GERD (gastroesophageal reflux disease) HTN (hypertension) Migraines Obesity Sleep apnea bipap Surgical History (Last Reviewed 08/31/18 @ 08:12 by Michael Oseguera CRNA) Hx laparoscopic cholecystectomy Hx of heart artery stent Hx of heart bypass surgery Cemented left reverse total shoulder arthroplasty. Onset Date: ~08/02/18 Dr Adame work comp Closed reduction right proximal humerus fracture dislocation Onset Date: ~07/28/18 right and ORIF right 4-part proximal humerus fracture Dr. Adame 07-29-18 work comp Family History (Last Reviewed 08/31/18 @ 08:12 by Michael Oseguera CRNA) Grandmother Diabetes Mother Cancer Sister Heart disease Father Alcoholic fibrosis and sclerosis of liver - Family Anesthesia History Family History:: no untoward family reactions to anesthesia, no familial bleeding tendencies, no family history of clotting disorders, no family history of premature - Airway/Neck/Teeth Teeth Condition: Intact Neck Exam: non-tender Mallampatti Score: 3 Thyromental (T-M) distance: > 6 cm Mandibulo Hyoid distance: > 3 cm - Respiratory Respiratory: chest non-tender, lungs clear Smoking Status: Former smoker Discussed smoking cessation including day of surgery: No Sleep Apnea currently treated: Yes Sleep Apnea by current assessment: Yes - Cardiovascular Patient History - Cardiac/Respiratory: Coronary Heart Disease - has had bypass and stents, denies ID, Hypertension, Hyperlipidemia, CPAP/BiPAP Home Use Tolerates Activity: Fair Heart Sounds: S1 & S2, Regular, Murmur - at base of heart - Anesthesia Assessment and Plan ASA Class: PS, III Anesthesia Type Plan: General LMA, Block - interscalene block for post op pain relief Planned difficult intubation/equipment available: No - standby
[2018-08-31] MEDS ORDERED: ONDANSETRON HCL/PF 2 MG/ML VIAL IV PRN (11:22)
[2018-08-31] MEDS ORDERED: NORMAL SALINE 1,000 ML IV PRN (11:22)
[2018-08-31] MEDS ORDERED: diphenhydrAMINE HCL 50 MG/ML VIAL IV PRN (11:22)
[2018-08-31] MEDS ORDERED: ACETAMINOPHEN 500 MG TABLET PO PRN (11:22)
[2018-08-31] MEDS ORDERED: MORPHINE SULFATE 2 MG/ML DISP.SYRIN IV PRN (11:22)
[2018-08-31] MEDS ORDERED: MAG HYDROX/ALUMINUM HYD/SIMETH 30 ML UDC PO PRN (11:22)
[2018-08-31] MEDS ORDERED: MAGNESIUM HYDROXIDE 30 ML UDC PO PRN (11:22)
[2018-08-31] MEDS ORDERED: oxyCODONE HCL/ACETAMINOPHEN 1 TAB TABLET PO PRN (11:22)
--- NOTE | 2018-08-31 11:26 | OR ---
Operative Report - Dictated Report Narrative: Date: 08/31/2018 Surgeon: Gidoen Simmons M.D. Sql Engineer: Blade Webb PA-C Preoperative diagnosis: Right 4-part proximal humerus fracture s/p failed ORIF Postoperative diagnosis: Right 4-part proximal humerus fracture s/p failed ORIF Procedure: 1. Right cemented reverse total shoulder arthroplasty 2. Deep implant removal right proximal humerus Anesthesia: General plus regional Complications: None Estimated blood loss: 150 mL Specimens: Bone for disposal, swab & tissue cultures, frozen tissue sections x2 Retained implants: Iftikhar Delta Xtend size 1 cemented 10 mm monobloc stem Iftikhar Delta Xtend cementless metaglene Iftikhar Delta Xtend standard 38 mm glenosphere Iftikhar Delta Xtend 38 mm/+3 poly cup Depuy Delta Xtend +9 mm humeral spacer Drains: None Indications: Lori is a 58 year-old female who sustained bilateral proximal humerus fract ures. She underwent cemented reverse total shoulder on the left and an attempted open reduction internal fixation on the right with my partner Dr. Adame. The right side collapsed resulting in screw cut out. I saw her in my office and counseled her on the need for revision surgery to a cemented reverse total shoulder prosthesis. The risks, benefits, and alternatives were discussed in clinic. The risks being , bleeding, infection, blood clots, nerve, blood vessel injury, implant loosening/failure, persistent pain, stiffness, weakness, need for prolonged therapy, need for additional procedures, and persistent symptoms. Consent was obtained in the clinic. Procedure: After marking the correct extremity in the preoperative holding area, a timeout was performed in the operating room. IV antibiotics were held in anticipation of intraoperative cultures prior to the procedure. A general followed by regional anesthetic was induced by the nurse wic site coordinator. This was in the supine position, then the patient was transitioned to a beachchair position with all bony prominences well-padded, head in neutral, the nonoperative arm well supported, and the legs padded with SCDs in place. The operative shoulder was then prepped and draped in a standard sterile fashion. The previous deltopectoral incision was utilized. The skin was incised and dissection combination of electrocautery and Metzenbaum scissors was carried down through the subcutaneous tissue. The deltopectoral fascia was identified and the interval was developed using a combination of blunt finger dissection and dissection with Metzenbaum scissors. The cephalic vein was identified and protected. The deltoid and cephalic vein were retracted laterally and the pectoralis major muscle retracted medially revealing the anterior capsule of the shoulder and the conjoined tendon. There was significant scar tissue formation and significant adhesions between the deltoid and the proximal humerus. Swab and tissue cultures were sent at this time. Electrocautery was used to peel away scar tissue from the proximal humeral plate in order to visualize it in its entirety. All screws were sequentially removed followed by the plate. Dissection was then carried out in order to identify all the fracture fragments. The greater tuberosity was in multiple fragments with very poor bone quality. The lesser tuberosity fragment was also significantly retracted with poor bone quality. The humeral head was identified and removed from the wound. The proximal shaft was inspected and found to have the distalmost portion of the calcar still intact. At this point deep tissue sections were taken from the proximal humerus and from around the glenoid and these were sent for frozen section to rule out any infection. There were no gross signs of infection or purulence in the wound. Frozen sections came back as 2-3 neutrophils per high- power field. We felt confident at this point that the wound was not infected and elected to proceed with a cemented reverse total shoulder arthroplasty. Attention was then turned to preparation of the glenoid. Glenoid retractors were placed anterior and posterior-inferiorly. Circumferential dissection was carried out around the glenoid releasing the capsule from the glenoid neck. The base of the coracoid was visualized and the medial scapular spine could be easily palpated. The labrum was then removed with a sharp knife. The pin guide was then placed on the glenoid to allow for inferior, slightly posterior, and slightly inferiorly tilted placement of our guide pin. This was advanced into the bone with good purchase. We confirmed appropriate position of the guidepin at this point. The central peg drill was then drilled over the guidepin. The cementless metaglene and was then impacted into place and placed in the appropriate rotation based on the location of the base of the coracoid and medial scapular spine. The superior and inferior screws were then drilled with good bone purchase. They were then measured and screws were placed with good purchase and good compression of the metaglene against the glenoid. The anterior and posterior screws were then drilled, measured, and placed. The superior and inferior locking screws were then locked into place. At this point we felt a 38 mm glenosphere was the appropriate size and the final glenosphere was screwed into the metaglene. Attention was turned back to the proximal humerus which was again delivered up and out of the wound. Sequential reaming was performed up to a 10 mm reamer which had good cortical purchase distally. A size 110 mm cementless trial was then impacted into place in 10 of retroversion and sat directly on the medial calcar. This was then trialed with a +9 polyethylene and found to have good stability and good range of motion. The implant height was measured at about 5 cm proximal to the pectoralis major insertion. We felt this was a good height for our humeral implant. Attention was turned back to the tuberosities to see if these could be repaired. These were significantly retracted and the bone quality was very poor. I felt there was a very low chance that these would heal and so we proceeded with removing all bony tuberosity fragments to minimize the chance of heterotopic ossification. Once this was complete, we turned our attention back to cementing and her final stem. A canal restrictor was placed in the humeral canal. The canal was then prepared using pulsatile lavage and a canal brush. The canal was then thoroughly dried and filled with medium viscosity cement. The final 10 mm cemented monoblock implant was then impacted into place in 10 retroversion. All excess extruded cement was removed and the cement was allowed to harden. Once the cement was cured, we returned to trialing our spacers. It was found at this point that a +12 mm spacer provided good stability with full range of motion. The final +9 humeral spacer and +3 p olyethylene were assembled on the back table. These were then impacted into place in the stem. The glenohumeral joint was then reduced and taken through a range of motion and found to be stable. The wound was then copiously irrigated with normal saline and then closed in a layered fashion. The deltopectoral fascia was closed in an interrupted fashion with 0 Vicryl. Subcutaneous tissue was closed with interrupted 3-0 Vicryl in a deep dermal fashion. Skin was then closed with 4-0 nylon. The wound was then dressed with xeroform, 4 x 4's, ABDs, and medipore tape. All sponge, needle, blade, and instrument counts were correct prior to closing the wounds. The patient was awoken and transferred to the postanesthesia care unit in stable condition.
--- NOTE | 2018-08-31 11:49 | ANES ---
Anesthesia Procedure Note Procedure Note: ANESTHESIA PROCEDURE NOTE Date of Procedure:] 08/31/2018 [ Time of procedure: 05 20. Performed by: YONG Estrella CRNA, MSN Emissions Technician: Eloise Coleman RN. Preprocedure diagnosis: Right total shoulder replacement. Post procedure diagnosis: Same. Procedure: Right interscalene nerve block. Indications: Post right reverse total shoulder replacement pain relief. Findings: See below. Details of the procedure: The patient was brought to OR #4 and placed in semi- Fowlers position. The patient was prepped with chlorhexidine and using ultrasound guidance the right interscalene segment of the brachial plexus was identified and lidocaine 1% was infiltrated to the skin of the intended inje ction site. Under ultrasound guidance the interscalene nerve bundles were approached with visualization of a 2inch stimulator needle visualized unde ultrasound until a shoulder/arm response was identified on nerve stimulator. Once the stimulator response was effective at less than 0.5 mV and greater than 0.3 mV the bracheal plexus nerves at this level were surrounded with 30 mL bupivacaine 0.25% with 1-200,000 epinephrine. Please see radiology/ultrasound report for details and retained images of the procedure. EBL: 0 Fluids: N/A. Specimen: N/A. Post procedure condition: The patient tolerated the procedure well. No complications were noted. Thank you for this consultation. Michael Oseguera CRNA, ARNP, MSN
--- NOTE | 2018-08-31 11:49 | ANES ---
Post Anesthesia Discharge - Transfer of Care Transfer of Care handoff given to nurse: Yes - Discharge from PACU Discharge from PACU when meets criteria: Yes - Comfortable
[2018-08-31] MEDS: ceFAZolin SODIUM 2 GM in DEXTROSE 5 % IN WATER 50 ML IV SCH ×4 (13:37→20:14)
--- NOTE | 2018-08-31 15:52 | ANES ---
Post Anesthesia Assessment - Vital Signs Vitals: Last Vital Signs Temp 36.6 C 08/31/18 14:28 Pulse 100 08/31/18 14:28 Resp 17 08/31/18 14:28 BP 131/72 08/31/18 14:28 Pulse Ox 98 08/31/18 14:28 Airway Patency: Normal - Mental Status Level Of Consciousness: Awake, Alert - Pain Level Pain Score: 0 - N/V Assessment Nausea/Vomiting Presence: None Dehydration:: No
[2018-08-31] MEDS: oxyCODONE HCL/ACETAMINOPHEN 1 TAB TABLET PO PRN (20:11)
[2018-08-31] MEDS ORDERED: INSULIN LISPRO 100 UNITS/ML VIAL SC ONE (20:33)
[2018-08-31] MEDS ORDERED: SENNOSIDES/DOCUSATE SODIUM 1 TAB TABLET PO SCH (21:00)
[2018-08-31] MEDS: INSULIN DETEMIR 100 UNITS/ML VIAL SC SCH (21:04)
[2018-09-01] MEDS: oxyCODONE HCL/ACETAMINOPHEN 1 TAB TABLET PO PRN ×3 (01:53→10:40)
[2018-09-01] MEDS: ceFAZolin SODIUM 2 GM in DEXTROSE 5 % IN WATER 50 ML IV SCH ×2 (04:32)
[2018-09-01 05:47] LABS: Hematocrit 29.5 % (37.0-47.0); Hemoglobin 8.9 gm/dL (12.5-16.0); Mean Cell Volume 84.5 fl (78-100); Mean Corpuscular Hemoglobin 25.5 pg (27-31); Mean Corpuscular Hgb Conc 30.2 g/dl (32-36); Mean Platelet Volume 11.8 fl (8-12.5); Platelet Count 229 K/mm3 (150-450); Red Blood Count 3.49 M/mm3 (4.2-5.4)
[2018-09-01 05:50] LABS: Anion Gap 12.7 mmol/L (6.8-13.8); Calcium * 8.6 mg/dL (7.9-10.9); Carbon Dioxide 28.2 mmol/L (24-32.6); Estimated Creat Clear 66.8; Potassium 3.9 mmol/L (3.4-4.6)
[2018-09-01] MEDS ORDERED: ZOLPIDEM TARTRATE 5 MG TABLET PO PRN (08:26)
[2018-09-01] MEDS ORDERED: METHOCARBAMOL 500 MG TABLET PO PRN (08:26)
[2018-09-01] MEDS ORDERED: MAG HYDROX/ALUMINUM HYD/SIMETH 30 ML UDC PO PRN (08:26)
[2018-09-01] MEDS ORDERED: HYDROCHLOROTHIAZIDE 12.5 MG CAPSULE PO SCH (09:00)
[2018-09-01] MEDS ORDERED: TOPIRAMATE 50 MG TABLET PO SCH (09:00)
[2018-09-01] MEDS ORDERED: VENLAFAXINE HCL 75 MG TABLET PO SCH (09:00)
[2018-09-01] MEDS ORDERED: INSULIN DETEMIR 100 UNITS/ML VIAL SC SCH (09:00)
[2018-09-01] MEDS ORDERED: FLUTICASONE PROPIONATE 120 SPRAY INHALER NS SCH (09:00)
[2018-09-01] MEDS ORDERED: METOPROLOL TARTRATE 25 MG TABLET PO SCH (09:00)
[2018-09-01] MEDS ORDERED: TIOTROPIUM BROMIDE 5 CAP INHALER IH SCH (09:00)
[2018-09-01] MEDS ORDERED: EZETIMIBE 10 MG TABLET PO SCH (09:00)
[2018-09-01] MEDS ORDERED: PANTOPRAZOLE SODIUM 40 MG TABLET.EC PO SCH (09:00)
[2018-09-01] MEDS ORDERED: LISINOPRIL 10 MG TABLET PO SCH (09:00)
[2018-09-01] MEDS ORDERED: POTASSIUM CHLORIDE 20 MEQ TABLET.SA PO SCH (09:00)
[2018-09-01] MEDS ORDERED: FLUTICASONE/SALMETEROL 14 PUFF DISK.W.DEV IH SCH (09:00)
[2018-09-01] MEDS: GABAPENTIN 300 MG CAPSULE PO SCH ×2 (09:57→13:30)
[2018-09-01] MEDS: INSULIN DETEMIR 100 UNITS/ML VIAL SC SCH (10:00)
[2018-09-01] MEDS ORDERED: INSULIN LISPRO 100 UNITS/ML VIAL SC SCH (12:00)
--- NOTE | 2018-09-01 13:18 | DS ---
(1) Status post reverse total arthroplasty of right shoulder Problem: Acute Description of Stay: Patient was admitted postoperatively after right shoulder removal of deep implants and reverse total shoulder arthroplasty completed. Postoperatively patient was monitored for observation, pain control, p.o. diet, postoperative side effects. At this time patient has reported no acute events, she is tolerating a p.o. diet, p.o. pain medication, her pain is well controlled. Exam today reveals no significant drainage from dressing postoperatively, she is neurovascular intact to her right upper extremity, branch operation evaluation manager strength 5/5, patient presents in a sling immobilizer. Discussed with patient postoperative care including follow-up at 2 weeks postoperative in the orthopedic outpatient clinic. Patient has had some mild nausea, it was treated with Zofran, will be given a prescription for this. Plan for discharge is to return to [facility] for her recovery. Patient agrees with this treatment plan and will call our office with any acute questions or concerns. She has seen physical therapy and has been given instructions for exercises to perform until follow-up. Procedures Performed: see notes below List Procedures: Right deep implant removal with reverse total shoulder arthroplasty Results and Findings: Pending Mircobiology Results 08/31/18 09:30 Other - Right Surgical Culture - Preliminary No Growth Lab Pending Results 09/01/18 05:39: WBC 13.0 H, RBC 3.49 L, Hgb 8.9 L, Hct 29.5 L, MCV 84.5, MCH 25.5 L, MCHC 30.2 L, RDW 15.0 H, Plt Count 229, MPV 11.8 09/01/18 05:39: Sodium 138, Plasma Sodium 140, Potassium 3.9, Chloride 101, Carbon Dioxide 28.2, Anion Gap 12.7, BUN 16, Creatinine 0.89, Est GFR (Non-Af Amer) 69, BUN/Creatinine Ratio 18.0, Random Glucose 217 H, Calcium 8.6 Discharge Location: [facility] Disposition: SNF Condition: Good Level of Care: SNF Discharge Activity: Activity as tolerated, Weight bearing - 2 pound lifting restriction until follow-up, range of motion as tolerated Discharge Diet: General/regular food Fpc Therapy: Physicial Therapy, Occupation Therapy Referrals: Ward Zazueta DO [Primary Care Provider] - Problem Oriented Discharge Instructions to Patient/Family: Hardware Removal, Care After Print Language (Bahamian or [place]er Available): Bahamian Additional Patient Instructions (free text): To [facility] in [place] at discharge, please fax discharge information to them. Prescriptions (Any new or edited meds): Ondansetron HCl [Zofran] 4 mg PO TID PRN #60 tab PRN Reason: Nausea oxyCODONE HCL/ACETAMINOPHEN [Percocet 5 MG/325 MG] 1 - 2 tab PO Q4H PRN #60 tab PRN Reason: Moderate Pain (Pain Scale 4-6) Complete Home Medications List: Complete Home Medication List: Albuterol Sulfate [Ventolin Hfa] 1 puff INHALATION QID PRN 07/28/18 Atorvastatin Calcium [Lipitor] 80 mg PO DAILY 07/28/18 Ezetimibe [Zetia] 10 mg PO DAILY 07/28/18 Gabapentin [Neurontin] 300 mg PO QID 07/28/18 Hydrochlorothiazide 12.5 mg PO DAILY 07/28/18 Methocarbamol [Robaxin] 1 - 2 tab PO BID PRN 07/28/18 Metoprolol Tartrate [Lopressor] 25 mg PO BID 07/28/18 Montelukast Sodium [Singulair] 10 mg PO HS 07/28/18 Omeprazole 40 mg PO DAILY 07/28/18 Tiotropium [place] [Spiriva] 18 mcg INHALATION DAILY 07/28/18 Topiramate [Topamax] 50 mg PO BID 07/28/18 Venlafaxine HCl [Effexor] 75 mg PO DAILY 07/28/18 metFORMIN HCL [Glucophage Xr] 500 mg PO QAM 07/28/18 Fluticasone Propionate 2 sprays NS DAILY #1 bottle 08/06/18 Fluticasone/Salmeterol [Advair 250-50 Diskus] 1 puff INHALATION DAILY disk.w.dev 08/06/18 Insulin Detemir [Levemir] 30 units SC BID #1 vial 08/06/18 Insulin Lispro [Humalog] 16 units SC ACINS #1 vial 08/06/18 Lisinopril [Prinivil] 10 mg PO DAILY #30 tab 08/06/18 Mag Hydrox/Aluminum Hyd/Simeth [Maalox Plus Suspension] 30 ml PO Q6H PRN #1 udc 08/06/18 Nystatin [Mycostatin Powder] 1 appl TOPICAL BID #1 btl 08/06/18 Potassium Chloride [K-Dur] 20 meq PO BIDWM #60 tablet.sa 08/06/18 Sennosides/Docusate Sodium [Senokot-S] 2 tab PO HS #60 tab 08/06/18 Zolpidem Tartrate [Ambien] 5 mg PO HS PRN #30 tab 08/06/18 Cold Therapy Unit 0 .ROUTE .MEDSUPPLY #1 ea 08/25/18 morphine ER 30 mg tablet,extended release 30 mg PO Q12H #30 tab 08/25/18 oxycodone-acetaminophen 10 mg-325 mg tablet 1 tab PO Q6H PRN #120 tab 08/25/18 Ondansetron HCl [Zofran] 4 mg PO TID PRN #60 tab 09/01/18 Sennosides/Docusate Sodium [Senokot-S] 2 tab PO HS tablet 09/01/18 oxyCODONE HCL/ACETAMINOPHEN [Percocet 5 MG/325 MG] 1 - 2 tab PO Q4H PRN #60 tab 09/01/18
[2018-09-01 16:24] VITALS: BP 110/73
[2018-09-01] MEDS ORDERED: MONTELUKAST SODIUM 10 MG TABLET PO SCH (21:00)
[2018-09-01] MEDS ORDERED: ROSUVASTATIN CALCIUM 20 MG TABLET PO SCH (21:00)
== END 2018-09-01 14:00 | DRG 483 ==
LOC: MS 06:50 → EDSTATUS 09:30
PROVIDERS: ADMIT Orthopaedic Surgery; ATTEND Orthopaedic Surgery
CPT/HCPCS: 36415; 73030; 80048; 85027; 87070; 88305; 88311; 88331; 88332; 94660; 97110; 97116; 97140; 97161; 97166; J2405